=== PATIENT | male | born 1935 | race Caucasian/White ===

== ENCOUNTER 2019-05-09 09:46 | Emergency (ER) | payer MEDICARE, OTHER ==
[~2019-05-09] VITALS: Ht 177.8 cm; Wt 90.7 kg
[~2019-05-09 09:46] MED LIST: ASPI81EC PO; CHOLESTEROL MED?; CLOP75 PO; HYDCHL12.5 PO; LISI5 PO; RANI150 PO; WARF5 PO; Zestril PO
[2019-05-09] MEDS ORDERED: ASPI325 PO (10:51)
[2019-05-09 10:58] LABS: BASOPHILS ABSOLUTE AUTO 0.05 K/mm3 (0.00-0.23); BASOPHILS PERCENT AUTO 1 % (0-2); EOSINOPHILS ABSOLUTE AUTO 0.08 K/mm3 (0.00-0.68); EOSINOPHILS PERCENT AUTO 1 % (0-6); Hematocrit 36.5 % (37.0-53.0); Hemoglobin 11.2 g/dL (13.5-17.5); IMMATURE GRAN ABSOLUTE AUTO 0.03 K/mm3 (0.00-0.10); IMMATURE GRAN PERCENT AUTO 0 % (0-1); LYMPHOCYTES ABSOLUTE AUTO 1.44 K/mm3 (0.84-5.20); LYMPHOCYTES PERCENT AUTO 20 % (21-46); MONOCYTES ABSOLUTE AUTO 0.65 K/mm3 (0.16-1.47); MONOCYTES PERCENT AUTO 9 % (4-13); Mean Corpuscular HGB 21.1 pg (26.0-34.0); Mean Corpuscular HGB Conc 30.7 g/dL (31.5-36.5); Mean Corpuscular Volume 69 fL (80-100); Mean Platelet Volume 11.1 fL (9.1-12.4); NEUTROPHILS PERCENT AUTO 69 % (41-73); Platelet Count 376 K/mm3 (150-400); RDW Coefficient Variation 19.9 % (11.7-14.2); RDW Standard Deviation 46.3 fL (35.1-46.3); Red Blood Cell Count 5.31 M/mm3 (4.30-5.90); White Blood Cell Count 7.25 K/mm3 (4.00-11.30)
[2019-05-09 11:19] LABS: Alanine Aminotransfer (ALT/SGP 16 U/L (12-78); Albumin, Blood 3.8 g/dL (3.4-5.0); Albumin/Globulin Ratio 1.3 (0.8-1.8); Alk Phos 72 U/L (50-136); Anion Gap 9 mmol/L (6-16); Aspartate Aminotrans (AST/SGOT 11 U/L (12-37); Bilirubin, Total 0.8 mg/dL (0.1-1.0); Blood Urea Nitrogen 17 mg/dL (8-24); CO2, Blood 22 mmol/L (21-32); Calcium, Blood 8.7 mg/dL (8.5-10.1); Chloride, Blood 112 mmol/L (98-108); Glomerular Filtration Rate >60 (60-); Glucose, Blood 123 mg/dL (70-99); Potassium, Blood 3.9 mmol/L (3.5-5.5); Sodium, Blood 143 mmol/L (136-145); Total Protein, Blood 6.8 g/dL (6.4-8.2)
[2019-05-09 11:44] LABS: Source, Urine Clean Catch
[2019-05-09 12:29] LABS: Bilirubin, Urine Neg (Neg); Blood, Urine Neg (Neg); Glucose Qualitative, Urine Neg (Neg); Ketones, Urine 1+ (Neg); Leukocyte Esterase, Urine 1+ (Neg); Nitrite, Urine Neg (Neg); Protein, Urine Neg (Neg); Urobilinogen, Urine NORM (Normal)
[2019-05-09 12:41] LABS: Appearance, Urine Clear (Clear); Color, Urine Yellow (P-Yellow)
[2019-05-09 12:42] LABS: Red Blood Cells, Urine 0-2 /hpf (0-2)
[2019-05-09 12:43] LABS: Bacteria Rare /hpf; Mucus Mod ({null, 0-Heavy}); Squamous Epithelial Cells Rare /hpf (Few)
== END 2019-05-09 13:24 | disposition home or self-care (01) ==
LOC: ER 09:46
PROVIDERS: Emergency Medicine
DX: R53.1 Weakness (principal); Z79.82 Long term (current) use of aspirin; I10 Essential (primary) hypertension; Z86.73 Personal history of transient ischemic attack (TIA), and cerebral infarction without residual deficits
CPT/HCPCS: 36415; 80053; 81001; 83880; 84484; 85025; 87086; 93005; 93010; 99285-25

== ENCOUNTER → 2020-05-10 | Outpatient (CLI) | payer MEDICARE, OTHER ==
[~2020-05-10] MED LIST changes: +ASPI325 PO; +METOPROLOL SUCC25 MG PO; +OMEP20ER PO
[2020-05-10 11:22] LABS: BASOPHILS ABSOLUTE AUTO 0.04 K/mm3 (0.00-0.23); BASOPHILS PERCENT AUTO 1 % (0-2); EOSINOPHILS ABSOLUTE AUTO 0.07 K/mm3 (0.00-0.68); EOSINOPHILS PERCENT AUTO 1 % (0-6); Hematocrit 40.2 % (37.0-53.0); IMMATURE GRAN ABSOLUTE AUTO 0.02 K/mm3 (0.00-0.10); IMMATURE GRAN PERCENT AUTO 0 % (0-1); LYMPHOCYTES ABSOLUTE AUTO 1.16 K/mm3 (0.84-5.20); LYMPHOCYTES PERCENT AUTO 17 % (21-46); MONOCYTES ABSOLUTE AUTO 0.49 K/mm3 (0.16-1.47); MONOCYTES PERCENT AUTO 7 % (4-13); Mean Corpuscular HGB 23.9 pg (26.0-34.0); Mean Corpuscular HGB Conc 32.3 g/dL (31.5-36.5); Mean Corpuscular Volume 74 fL (80-100); Mean Platelet Volume 11.5 fL (9.1-12.4); NEUTROPHILS ABSOLUTE AUTO 5.18 K/mm3 (1.96-9.15); NEUTROPHILS PERCENT AUTO 74 % (41-73); Platelet Count 334 K/mm3 (150-400); RDW Coefficient Variation 19.6 % (11.7-14.2); RDW Standard Deviation 49.1 fL (35.1-46.3); Red Blood Cell Count 5.43 M/mm3 (4.30-5.90); White Blood Cell Count 6.96 K/mm3 (4.00-11.30)
[2020-05-10 11:34] LABS: Alanine Aminotransfer (ALT/SGP 18 U/L (12-78); Albumin, Blood 3.8 g/dL (3.4-5.0); Albumin/Globulin Ratio 1.2 (0.8-1.8); Alk Phos 74 U/L (40-126); Amylase, Blood 29 U/L (25-115); Anion Gap 9 mmol/L (6-16); Aspartate Aminotrans (AST/SGOT 15 U/L (12-37); Bilirubin, Total 0.7 mg/dL (0.1-1.0); Blood Urea Nitrogen 18 mg/dL (8-24); Bun/Creatinine Ratio 16.7 (12.0-20.0); CO2, Blood 27 mmol/L (21-32); Calcium, Blood 8.8 mg/dL (8.5-10.1); Chloride, Blood 104 mmol/L (98-108); Creatinine, Blood 1.08 mg/dL (0.60-1.20); Globulin, Blood 3.3 g/dL (2.2-4.0); Glomerular Filtration Rate >60 (60-); Glucose, Blood 116 mg/dL (70-99); Potassium, Blood 4.1 mmol/L (3.5-5.5); Sodium, Blood 140 mmol/L (136-145); Total Protein, Blood 7.1 g/dL (6.4-8.2)
== END | disposition home or self-care (01) ==
LOC: LAB SHORT 11:16 → LAB EV 11:16
PROVIDERS: General Practice
DX: K62.5 Hemorrhage of anus and rectum (principal); R53.81 Other malaise
CPT/HCPCS: 80053; 82150; 84439; 84443; 85025

== ENCOUNTER → 2020-05-13 | Outpatient (CLI) | payer MEDICARE, OTHER ==
[2020-05-13 18:49] LABS: Bacteria Not Seen /hpf; Red Blood Cells, Urine Not Seen /hpf (0-2); Squamous Epithelial Cells Rare /hpf (Few); White Blood Cells, Urine Rare /hpf (0-5)
== END | disposition home or self-care (01) ==
LOC: LAB SHORT 17:17 → LAB EV 17:17
PROVIDERS: Physician Assistant
DX: R35.0 Frequency of micturition (principal)
CPT/HCPCS: 81015; 87086

== ENCOUNTER 2020-05-23 13:00 | Emergency (ER) | payer MEDICARE, OTHER ==
[~2020-05-23] VITALS: Ht 177.8 cm; Wt 86.6 kg
[~2020-05-23 13:00] MED LIST changes: -METOPROLOL SUCC25 MG PO; -OMEP20ER PO
[2020-05-23 13:58] LABS: BASOPHILS ABSOLUTE AUTO 0.05 K/mm3 (0.00-0.23); BASOPHILS PERCENT AUTO 1 % (0-2); EOSINOPHILS ABSOLUTE AUTO 0.06 K/mm3 (0.00-0.68); EOSINOPHILS PERCENT AUTO 1 % (0-6); Hematocrit 42.1 % (37.0-53.0); Hemoglobin 13.5 g/dL (13.5-17.5); IMMATURE GRAN ABSOLUTE AUTO 0.03 K/mm3 (0.00-0.10); IMMATURE GRAN PERCENT AUTO 0 % (0-1); LYMPHOCYTES ABSOLUTE AUTO 1.36 K/mm3 (0.84-5.20); LYMPHOCYTES PERCENT AUTO 14 % (21-46); MONOCYTES ABSOLUTE AUTO 0.97 K/mm3 (0.16-1.47); MONOCYTES PERCENT AUTO 10 % (4-13); Mean Corpuscular HGB 24.6 pg (26.0-34.0); Mean Corpuscular HGB Conc 32.1 g/dL (31.5-36.5); Mean Corpuscular Volume 77 fL (80-100); Mean Platelet Volume 10.9 fL (9.1-12.4); NEUTROPHILS ABSOLUTE AUTO 7.31 K/mm3 (1.96-9.15); NEUTROPHILS PERCENT AUTO 75 % (41-73); Platelet Count 329 K/mm3 (150-400); RDW Coefficient Variation 20.5 % (11.7-14.2); RDW Standard Deviation 54.6 fL (35.1-46.3); Red Blood Cell Count 5.48 M/mm3 (4.30-5.90); White Blood Cell Count 9.78 K/mm3 (4.00-11.30)
[2020-05-23 14:31] LABS: Alanine Aminotransfer (ALT/SGP 17 U/L (12-78); Albumin, Blood 3.6 g/dL (3.4-5.0); Albumin/Globulin Ratio 1.2 (0.8-1.8); Alk Phos 73 U/L (50-136); Anion Gap 5 mmol/L (6-16); Aspartate Aminotrans (AST/SGOT 18 U/L (12-37); Bilirubin, Total 0.6 mg/dL (0.1-1.0); Blood Urea Nitrogen 23 mg/dL (8-24); Bun/Creatinine Ratio 23.7 (12.0-20.0); CO2, Blood 23 mmol/L (21-32); Calcium, Blood 8.6 mg/dL (8.5-10.1); Chloride, Blood 113 mmol/L (98-108); Creatinine, Blood 0.97 mg/dL (0.60-1.20); Globulin, Blood 3.1 g/dL (2.2-4.0); Glomerular Filtration Rate >60 (60-); Glucose, Blood 105 mg/dL (70-99); Potassium, Blood 4.4 mmol/L (3.5-5.5); Sodium, Blood 141 mmol/L (136-145); Total Protein, Blood 6.7 g/dL (6.4-8.2); Troponin I <0.015 ng/mL (0.000-0.040)
[2020-05-23] MEDS ORDERED: OMEP20ER PO (16:20)
[2020-05-23] MEDS ORDERED: METOPROLOL SUCC25 MG PO (16:20)
[2020-05-23 17:02] LABS: Percent Saturation 128.2 % (20.0-50.0)
[2020-05-23 18:57] LABS: Source, Urine Catheter
[2020-05-23 19:05] LABS: Appearance, Urine Clear (Clear); Bilirubin, Urine Neg (Neg); Blood, Urine Neg (Neg); Color, Urine Yellow (P-Yellow); Glucose Qualitative, Urine Neg (Neg); Ketones, Urine 3+ (Neg); Leukocyte Esterase, Urine Neg (Neg); Nitrite, Urine Neg (Neg); Protein, Urine Neg (Neg); Urobilinogen, Urine NORM (Normal)
== END 2020-05-23 20:18 | disposition home or self-care (01) ==
LOC: ER 13:00
PROVIDERS: Physician Assistant
DX: R55 Syncope and collapse (principal); R53.1 Weakness; I10 Essential (primary) hypertension; Z79.899 Other long term (current) drug therapy; Z79.82 Long term (current) use of aspirin; Z86.718 Personal history of other venous thrombosis and embolism; Z86.73 Personal history of transient ischemic attack (TIA), and cerebral infarction without residual deficits
CPT/HCPCS: 36415; 74176; 80053; 81003; 82728; 83540; 83550; 84484; 85025; 93005; 93010; 99284-25

== ENCOUNTER → 2020-05-25 | Outpatient (CLI) | payer MEDICARE, OTHER ==
[~2020-05-25] MED LIST changes: +METOPROLOL SUCC25 MG PO; +OMEP20ER PO
[2020-05-26 14:08] LABS: ADENOVIRUS F 40/41 Not Detected (Not Detected); ASTROVIRUS Not Detected (Not Detected); C DIFFICILE TOXIN A/B Not Detected (Not Detected); CAMPYLOBACTER Not Detected (Not Detected); CRYPTOSPORIDIUM Not Detected (Not Detected); CYCLOSPORA CAYETANENSIS Not Detected (Not Detected); ENTAMOEBA HISTOLYTICA Not Detected (Not Detected); ENTEROAGGREGATIVE E COLI Not Detected (Not Detected); ENTEROPATHOGENIC E COLI Not Detected (Not Detected); ENTEROTOXIGENIC E COLI Not Detected (Not Detected); GIARDIA LAMBLIA Not Detected (Not Detected); NOROVIRUS GI/GII Not Detected (Not Detected); PLESIOMONAS SHIGELLOIDES Not Detected (Not Detected); ROTAVIRUS A Not Detected (Not Detected); SALMONELLA Not Detected (Not Detected); SAPOVIRUS Not Detected (Not Detected); SHIGA-TOXIN-PRODUCING E COLI Not Detected (Not Detected); SHIGELLA/ENTEROINVASIVE E COLI Not Detected (Not Detected); VIBRIO Not Detected (Not Detected); VIBRIO CHOLERAE Not Detected (Not Detected); YERSINIA ENTEROCOLITICA Not Detected (Not Detected)
== END | disposition home or self-care (01) ==
LOC: OLS 10:22 → LAB SHORT 10:22 → LAB FUT 05-23 07:05 → EDSTATUS 05-23 07:05
PROVIDERS: Physician Assistant
DX: R19.7 Diarrhea, unspecified (principal)
CPT/HCPCS: 0097U

== ENCOUNTER 2020-06-02 14:36 | Emergency (ER) | payer MEDICARE, OTHER ==
[~2020-06-02] VITALS: Ht 177.8 cm; Wt 91.2 kg
[2020-06-02 15:26] LABS: BASOPHILS ABSOLUTE AUTO 0.07 K/mm3 (0.00-0.23); BASOPHILS PERCENT AUTO 1 % (0-2); EOSINOPHILS ABSOLUTE AUTO 0.17 K/mm3 (0.00-0.68); EOSINOPHILS PERCENT AUTO 2 % (0-6); Hematocrit 43.6 % (37.0-53.0); Hemoglobin 14.1 g/dL (13.5-17.5); IMMATURE GRAN ABSOLUTE AUTO 0.03 K/mm3 (0.00-0.10); IMMATURE GRAN PERCENT AUTO 0 % (0-1); LYMPHOCYTES ABSOLUTE AUTO 1.76 K/mm3 (0.84-5.20); LYMPHOCYTES PERCENT AUTO 17 % (21-46); MONOCYTES ABSOLUTE AUTO 0.88 K/mm3 (0.16-1.47); MONOCYTES PERCENT AUTO 9 % (4-13); Mean Corpuscular HGB 24.9 pg (26.0-34.0); Mean Corpuscular HGB Conc 32.3 g/dL (31.5-36.5); Mean Corpuscular Volume 77 fL (80-100); NEUTROPHILS ABSOLUTE AUTO 7.21 K/mm3 (1.96-9.15); NEUTROPHILS PERCENT AUTO 71 % (41-73); Platelet Count 296 K/mm3 (150-400); RDW Coefficient Variation 20.1 % (11.7-14.2); RDW Standard Deviation 54.4 fL (35.1-46.3); Red Blood Cell Count 5.66 M/mm3 (4.30-5.90); White Blood Cell Count 10.12 K/mm3 (4.00-11.30)
[2020-06-02 15:46] LABS: Alanine Aminotransfer (ALT/SGP 18 U/L (12-78); Albumin, Blood 3.7 g/dL (3.4-5.0); Albumin/Globulin Ratio 1.2 (0.8-1.8); Alk Phos 76 U/L (50-136); Anion Gap 7 mmol/L (6-16); Aspartate Aminotrans (AST/SGOT 14 U/L (12-37); Bilirubin, Total 0.7 mg/dL (0.1-1.0); Blood Urea Nitrogen 17 mg/dL (8-24); Bun/Creatinine Ratio 18.6 (12.0-20.0); CO2, Blood 24 mmol/L (21-32); Calcium, Blood 9.1 mg/dL (8.5-10.1); Chloride, Blood 109 mmol/L (98-108); Creatinine, Blood 0.91 mg/dL (0.60-1.20); Globulin, Blood 3.1 g/dL (2.2-4.0); Glomerular Filtration Rate >60 (60-); Glucose, Blood 97 mg/dL (70-99); Potassium, Blood 3.9 mmol/L (3.5-5.5); Sodium, Blood 140 mmol/L (136-145); Total Protein, Blood 6.8 g/dL (6.4-8.2)
[2020-06-02 16:28] LABS: Source, Urine Clean Catch
[2020-06-02 16:32] LABS: Bilirubin, Urine Neg (Neg); Blood, Urine Neg (Neg); Glucose Qualitative, Urine Neg (Neg); Ketones, Urine 1+ (Neg); Leukocyte Esterase, Urine Neg (Neg); Nitrite, Urine Neg (Neg); Protein, Urine Neg (Neg); Specific Gravity, Urine 1.015 (1.003-1.022); Urobilinogen, Urine NORM (Normal)
[2020-06-02 16:39] LABS: Appearance, Urine Clear (Clear); Color, Urine Yellow (P-Yellow)
[2020-06-02 19:34] LABS: Troponin I <0.015 ng/mL (0.000-0.040)
== END 2020-06-02 20:37 | disposition home or self-care (01) ==
LOC: ER 14:36
PROVIDERS: Emergency Medicine
DX: R53.1 Weakness (principal); R42 Dizziness and giddiness; I10 Essential (primary) hypertension; Z86.73 Personal history of transient ischemic attack (TIA), and cerebral infarction without residual deficits; Z86.718 Personal history of other venous thrombosis and embolism
CPT/HCPCS: 36415; 71045; 80053; 81003; 84443; 84484; 85025; 93005; 93010; 99285-25

== ENCOUNTER 2020-07-21 12:10 | Emergency (ER) | payer MEDICARE, OTHER ==
[~2020-07-21] VITALS: Ht 177.8 cm; Wt 72.6 kg
[2020-07-21 12:39] LABS: BASOPHILS ABSOLUTE AUTO 0.05 K/mm3 (0.00-0.23); BASOPHILS PERCENT AUTO 0 % (0-2); EOSINOPHILS ABSOLUTE AUTO 0.02 K/mm3 (0.00-0.68); EOSINOPHILS PERCENT AUTO 0 % (0-6); Hematocrit 44.1 % (37.0-53.0); Hemoglobin 15.4 g/dL (13.5-17.5); IMMATURE GRAN ABSOLUTE AUTO 0.04 K/mm3 (0.00-0.10); IMMATURE GRAN PERCENT AUTO 0 % (0-1); LYMPHOCYTES ABSOLUTE AUTO 1.02 K/mm3 (0.84-5.20); LYMPHOCYTES PERCENT AUTO 8 % (21-46); MONOCYTES ABSOLUTE AUTO 1.31 K/mm3 (0.16-1.47); MONOCYTES PERCENT AUTO 11 % (4-13); Mean Corpuscular HGB 27.9 pg (26.0-34.0); Mean Corpuscular HGB Conc 34.9 g/dL (31.5-36.5); Mean Corpuscular Volume 80 fL (80-100); Mean Platelet Volume 10.3 fL (9.1-12.4); NEUTROPHILS ABSOLUTE AUTO 9.94 K/mm3 (1.96-9.15); NEUTROPHILS PERCENT AUTO 80 % (41-73); Platelet Count 334 K/mm3 (150-400); RDW Standard Deviation 48.5 fL (35.1-46.3); Red Blood Cell Count 5.51 M/mm3 (4.30-5.90); White Blood Cell Count 12.38 K/mm3 (4.00-11.30)
[2020-07-21 13:04] LABS: Albumin, Blood 3.7 g/dL (3.4-5.0); Albumin/Globulin Ratio 1.3 (0.8-1.8); Bun/Creatinine Ratio 15.3 (12.0-20.0); Calcium, Blood 9.5 mg/dL (8.5-10.1); Creatinine, Blood 1.5 mg/dL (0.60-1.20); Globulin, Blood 2.9 g/dL (2.2-4.0); Potassium, Blood 4.1 mmol/L (3.5-5.5); Total Protein, Blood 6.6 g/dL (6.4-8.2)
[2020-07-21 13:31] LABS: Source, Urine Clean Catch
[2020-07-21 13:35] LABS: Appearance, Urine Clear (Clear); Blood, Urine 1+ (Neg); Color, Urine Amber (P-Yellow); Glucose Qualitative, Urine Neg (Neg); Ketones, Urine 3+ (Neg); Leukocyte Esterase, Urine 1+ (Neg); Nitrite, Urine Neg (Neg); Protein, Urine 2+ (Neg); Specific Gravity, Urine 1.025 (1.003-1.022); Urobilinogen, Urine 1+ (Normal)
[2020-07-21 13:53] LABS: Bilirubin, Urine 1+ (Neg)
[2020-07-21 13:54] LABS: Bacteria Few /hpf; Red Blood Cells, Urine 0-2 /hpf (0-2); Squamous Epithelial Cells Rare /hpf (Few)
[2020-07-21 18:50] LABS: Calcium, Ionized (POC) 1.11 mmol/L (1.10-1.46); Chloride (POC) 102 mmol/L (98-108); Creatinine (POC) 1.2 mg/dL (0.8-1.3); Glucose (ISTAT POC) 77 mg/dL (70-99); Hemoglobin (POC) 13.6 g/dL (13.5-17.5); Potassium (POC) 3.9 mmol/L (3.5-5.5); Sodium (POC) 136 mmol/L (135-148); Total CO2 (POC) 21 mmol/L (21-32)
== END 2020-07-21 20:26 | disposition home or self-care (01) ==
LOC: ER 12:10
PROVIDERS: Emergency Medicine; Physician Assistant
DX: E86.0 Dehydration (principal); R62.7 Adult failure to thrive; R41.0 Disorientation, unspecified; I10 Essential (primary) hypertension; Z79.899 Other long term (current) drug therapy; Z86.73 Personal history of transient ischemic attack (TIA), and cerebral infarction without residual deficits; Z86.718 Personal history of other venous thrombosis and embolism
CPT/HCPCS: 51701; 70450; 80047; 80053; 81001; 85014; 85025; 87086; 93005; 93010; 96360-59; 99284-25; J7030

== ENCOUNTER 2020-07-29 14:56 | Inpatient (IN) | payer MEDICARE, OTHER ==
[~2020-07-29] VITALS: Ht 177.8 cm; Wt 83.9 kg
[2020-07-29] MEDS ORDERED: PRINIVIL10 MG PO (15:04)
[2020-07-29] MEDS ORDERED: ESCI10 PO (15:04)
[2020-07-29] MEDS ORDERED: SOLIFENACIN SUCC5 MG PO (15:04)
[2020-07-29] MEDS ORDERED: Zyprexa Zydis5 MG PO (15:04)
[2020-07-29] MEDS ORDERED: PLAVIX75 MG PO (15:04)
[2020-07-29] MEDS ORDERED: LOW DOSE ASPIRI81 M1 PO (15:05)
[2020-07-29 15:11] LABS: PCO2 Arterial 26.2 mmHg (35-45); PO2 Arterial 84.4 mmHg (80-100); pH Blood Arterial 7.41 (7.35-7.45)
[2020-07-29 15:23] LABS: Source, Urine Catheter
[2020-07-29 15:27] LABS: BASOPHILS ABSOLUTE AUTO 0.06 K/mm3 (0.00-0.23); BASOPHILS PERCENT AUTO 0 % (0-2); EOSINOPHILS ABSOLUTE AUTO 0.01 K/mm3 (0.00-0.68); EOSINOPHILS PERCENT AUTO 0 % (0-6); Hematocrit 44.6 % (37.0-53.0); IMMATURE GRAN ABSOLUTE AUTO 0.17 K/mm3 (0.00-0.10); IMMATURE GRAN PERCENT AUTO 1 % (0-1); LYMPHOCYTES PERCENT AUTO 10 % (21-46); MONOCYTES ABSOLUTE AUTO 1.55 K/mm3 (0.16-1.47); MONOCYTES PERCENT AUTO 9 % (4-13); Mean Corpuscular HGB 27.7 pg (26.0-34.0); Mean Corpuscular HGB Conc 33.6 g/dL (31.5-36.5); Mean Corpuscular Volume 82 fL (80-100); Mean Platelet Volume 12.4 fL (9.1-12.4); NEUTROPHILS ABSOLUTE AUTO 14.13 K/mm3 (1.96-9.15); NEUTROPHILS PERCENT AUTO 80 % (41-73); Platelet Count 152 K/mm3 (150-400); RDW Coefficient Variation 17.2 % (11.7-14.2); Red Blood Cell Count 5.42 M/mm3 (4.30-5.90); White Blood Cell Count 17.62 K/mm3 (4.00-11.30)
[2020-07-29 15:33] LABS: Appearance, Urine Hazy (Clear); Blood, Urine 1+ (Neg); Color, Urine Amber (P-Yellow); Glucose Qualitative, Urine Neg (Neg); Ketones, Urine 1+ (Neg); Leukocyte Esterase, Urine 1+ (Neg); Nitrite, Urine Neg (Neg); Protein, Urine 2+ (Neg); Specific Gravity, Urine 1.025 (1.003-1.022); Urobilinogen, Urine 2+ (Normal)
[2020-07-29 15:45] LABS: Bilirubin, Urine 1+ (Neg)
[2020-07-29 15:47] LABS: Amorphous Heavy (0-Heavy)
[2020-07-29 15:48] LABS: Bacteria Mod /hpf; Red Blood Cells, Urine 0-2 /hpf (0-2); Squamous Epithelial Cells Few /hpf (Few); White Blood Cells, Urine 0-2 /hpf (0-5)
[2020-07-29 15:54] LABS: Albumin, Blood 3.2 g/dL (3.4-5.0); Bun/Creatinine Ratio 13.6 (12.0-20.0); Creatinine, Blood 3.38 mg/dL (0.60-1.20); Globulin, Blood 3.2 g/dL (2.2-4.0); Potassium, Blood 4.7 mmol/L (3.5-5.5); Total Protein, Blood 6.4 g/dL (6.4-8.2)
[2020-07-29] MEDS ORDERED: ASPIR 8181 M1 PO (15:56)
[2020-07-29 16:03] LABS: Troponin I 3.31 ng/mL (0.000-0.040)
[2020-07-29 18:18] LABS: International Normalized Ratio 1.27; Prothrombin Time Results 13.4 Sec (9.7-11.5)
[2020-07-29 18:29] LABS: Influenza A, PCR Negative (NEGATIVE); Influenza B, PCR Negative (NEGATIVE); Resp Syncytial Virus, PCR Negative (NEGATIVE); SARS-Cov-2 (COVID-19) PCR, MMC Negative (NEGATIVE)
--- NOTE | 2020-07-29 19:15 | NUR ---
ADMISSION: PT ARRIVES FROM ED W/ Dx SEPSIS, NSTEMI, LEVY. PER FAMILY, PT HAS HAD A HERRERA DECLINE SINCE APPROX W/ INC SOMNOLENCE, ANOREXIA W/ SIGIFICANT WEIGHT LOSS OF ~20lbs. FAMILY STS PT REFUSES TO EAT & WILL ONLY SLEEP IN HIS WC D/T HIS HYPER CONCERN W/ INCONTINENCE. OVER THE LAST 2 DAYS PT HAS NEW DYSPHAGIA, CONFUSION, GARBLED SPEECH, & HALLUCINATIONS "SEEING & HEARING PEOPLE OUTSIDE" PER FAMILY. -UPON ARRIVAL PT IS SOMNOLENT, AWAKENS TO VERBAL STIMULI, ORIENTED x3, SLOW TO RESPOND W/ SOME GARBLED SPEECH, ABLE TO FOLLOW SOME SIMPLE COMMANDS. PT APPEARS PALE, SKIN IS COOL W/ CYANOTIC HANDS & FEET, CAP REFILL >3SEC. MONITOR INDICATES A SINUS RHYTHM. HR LOW 100s, SBP 100-90. HEPARIN GTT @ 13u/kg/hr SEE ASSESSMENT DOCUMENTATION.
--- NOTE | 2020-07-29 21:00 | NUR ---
CRITICAL LAB RESULTS: UPWARD TREND TROP OF 3.590. LACTIC DEC TO 4.0. SPOKE W/ DR PEREZ REGARDING RESULTS & DISCUSSED CHANGE IN FLUID RECUSITATION & AM LAB WORK. NO NEW ORDERS GIVEN. PT REMAINS STABLE W/ NO ACUTE CHANGES.
[2020-07-30 01:31] LABS: BASOPHILS ABSOLUTE AUTO 0.06 K/mm3 (0.00-0.23); BASOPHILS PERCENT AUTO 0 % (0-2); EOSINOPHILS ABSOLUTE AUTO 0.01 K/mm3 (0.00-0.68); EOSINOPHILS PERCENT AUTO 0 % (0-6); Hematocrit 39.8 % (37.0-53.0); Hemoglobin 13.5 g/dL (13.5-17.5); IMMATURE GRAN ABSOLUTE AUTO 0.09 K/mm3 (0.00-0.10); IMMATURE GRAN PERCENT AUTO 1 % (0-1); LYMPHOCYTES ABSOLUTE AUTO 1.55 K/mm3 (0.84-5.20); LYMPHOCYTES PERCENT AUTO 9 % (21-46); MONOCYTES PERCENT AUTO 10 % (4-13); Mean Corpuscular HGB 28.3 pg (26.0-34.0); Mean Corpuscular HGB Conc 33.9 g/dL (31.5-36.5); Mean Corpuscular Volume 83 fL (80-100); Mean Platelet Volume 12.2 fL (9.1-12.4); NEUTROPHILS ABSOLUTE AUTO 13.29 K/mm3 (1.96-9.15); NEUTROPHILS PERCENT AUTO 80 % (41-73); Platelet Count 121 K/mm3 (150-400); RDW Standard Deviation 50.8 fL (35.1-46.3); Red Blood Cell Count 4.77 M/mm3 (4.30-5.90)
[2020-07-30 02:00] LABS: Albumin, Blood 2.7 g/dL (3.4-5.0); Bilirubin, Total 0.9 mg/dL (0.1-1.0); Bun/Creatinine Ratio 16.3 (12.0-20.0); Calcium, Blood 8.4 mg/dL (8.5-10.1); Creatinine, Blood 2.94 mg/dL (0.60-1.20); Globulin, Blood 2.8 g/dL (2.2-4.0); Potassium, Blood 4.4 mmol/L (3.5-5.5); Total Protein, Blood 5.5 g/dL (6.4-8.2)
[2020-07-30 02:03] LABS: Troponin I 3.38 ng/mL (0.000-0.040)
--- NOTE | 2020-07-30 05:50 | NUR ---
SHIFT SUMMARY: PT AWAKE, RESPONDS TO VERBAL STIMULI, ABLE TO FOLLOW SOME COMMANDS. PT DOES NOT TRACK STAFF AROUND THE ROOM, DOES NOT MAKE EYE CONTACT WHEN SPEAKING OR WHEN ASKED. VERY SLOW TO RESPOND, SPEAKING IN 1-2 WORD SENTENCES W/ GARBLED SPEECH. MENTATION RELATIVELY UNCHANGED COMPARED TO PREVIOUS DOCUMENTATION. HEPARIN GTT @ 13u/kg/hr. PT HAD MUCH DIFFICULTY SLEEPING LAST NOC, STS HE DID NOT SLEEP @ ALL. POOR OUTPUT OF 150ml DARK JUAN URINE THIS SHIFT. BP CONTINUES TO BE SOFT W/ SBP 100s-85, MAP OF >65. NO ACUTE CHANGES THIS SHIFT.
--- NOTE | 2020-07-30 12:13 | NUR ---
PT RESTING IN BED. ABLE TO STATE MONTH AND YEAR. WHEN ASKED WHERE HE IS HE CANNOT COME UP WITH THE WORDS, BUT WHEN ASKED IF HE IS IN THE HOSPITAL HE SAYS "YES". IVF CHANGED TO NS AT 150ML/HR. ON HEPARIN GTT STILL. DR. VO IS OK WITH PT CHANGING TO PCU STATUS. NO SIGN OF DISTRESS. SONS UPDATED THIS AM VIA PHONE.
[2020-07-30 12:29] LABS: Albumin, Blood 2.6 g/dL (3.4-5.0); Anion Gap 9 mmol/L (6-16); Blood Urea Nitrogen 53 mg/dL (8-24); Bun/Creatinine Ratio 23.6 (12.0-20.0); CO2, Blood 23 mmol/L (21-32); Calcium, Blood 8.1 mg/dL (8.5-10.1); Chloride, Blood 111 mmol/L (98-108); Creatinine, Blood 2.25 mg/dL (0.60-1.20); Glomerular Filtration Rate 30 (60-); Glucose, Blood 120 mg/dL (70-99); Phosphorus, Blood 4.2 mg/dL (2.5-4.9); Potassium, Blood 4.2 mmol/L (3.5-5.5); Sodium, Blood 143 mmol/L (136-145)
--- NOTE | 2020-07-30 14:25 | NUR ---
PT TRANSFERED TO PCU VIA BED. NO SIGN OF DISTRESS. REPORT GIVEN TO SOPHIA WHO WILL ASSUME CARE.
--- NOTE | 2020-07-30 15:10 | NUR ---
RECEIVIED REPORT FROM KRISHNA GRIFFIN IN ICU. PT TRANSFERED TO ROOM. PT ALERT, ORIENTED TO SELF, UNWILLING TO ANSWER QUESTIONS, MUMBLES BUT CLEARLY STATES "GET OUT OF MY ROOM". NO S/SX OF DISTRESS NOTED. VSS. REPORT GIVEN TO RN ASSUMING CARE OF PT.
--- NOTE | 2020-07-30 15:30 | NUR ---
ASSUMED CARE: PT RESTING QUIETLY IN BED. HEPARIN GTT AND IV FLUIDS IN PLACE. PT IS LETHARGIC AT THIS TIME. AFIB AT 112 ON TELE AT THIS TIME. NO ACUTE NEEDS OR CONCERNS.
--- NOTE | 2020-07-30 17:30 | NUR ---
SHIFT SUMMARY: PT TRANSFERRED FROM ICU THIS SHIFT. LETHARGIC, MOANS OCCASIONALLY, SEEMS NONVERBAL AT THIS TIME. HEPARIN GTT RUNNING, TERAN CATH IN PLACE WITH SEDIMENT AND CLOUDY, TEA COLORED URINE NOTED. FLUIDS RUNNING WELL. BED ALARM ON, AFIB 113 ON TELE AT THIS TIME. NO ACUTE NEEDS OR CONCERNS.
[2020-07-31 04:07] LABS: BASOPHILS ABSOLUTE AUTO 0.05 K/mm3 (0.00-0.23); BASOPHILS PERCENT AUTO 0 % (0-2); EOSINOPHILS ABSOLUTE AUTO 0.03 K/mm3 (0.00-0.68); EOSINOPHILS PERCENT AUTO 0 % (0-6); Hematocrit 40.8 % (37.0-53.0); Hemoglobin 13.7 g/dL (13.5-17.5); IMMATURE GRAN PERCENT AUTO 1 % (0-1); LYMPHOCYTES ABSOLUTE AUTO 1.33 K/mm3 (0.84-5.20); LYMPHOCYTES PERCENT AUTO 8 % (21-46); MONOCYTES ABSOLUTE AUTO 1.68 K/mm3 (0.16-1.47); MONOCYTES PERCENT AUTO 10 % (4-13); Mean Corpuscular HGB Conc 33.6 g/dL (31.5-36.5); Mean Corpuscular Volume 83 fL (80-100); Mean Platelet Volume 12.6 fL (9.1-12.4); NEUTROPHILS ABSOLUTE AUTO 14.26 K/mm3 (1.96-9.15); NEUTROPHILS PERCENT AUTO 82 % (41-73); Platelet Count 163 K/mm3 (150-400); RDW Coefficient Variation 17.2 % (11.7-14.2); RDW Standard Deviation 50.9 fL (35.1-46.3); White Blood Cell Count 17.45 K/mm3 (4.00-11.30)
[2020-07-31 04:24] LABS: Albumin, Blood 2.6 g/dL (3.4-5.0); Albumin/Globulin Ratio 0.9 (0.8-1.8); Bilirubin, Total 0.9 mg/dL (0.1-1.0); Bun/Creatinine Ratio 31.1 (12.0-20.0); Calcium, Blood 7.9 mg/dL (8.5-10.1); Creatinine, Blood 1.67 mg/dL (0.60-1.20); Magnesium, Blood 2.2 mg/dL (1.6-2.4); Phosphorus, Blood 2.8 mg/dL (2.5-4.9); Potassium, Blood 4.1 mmol/L (3.5-5.5); Total Protein, Blood 5.6 g/dL (6.4-8.2)
--- NOTE | 2020-07-31 06:14 | NUR ---
SHIFT SUMMARY: PATIENT IS ABLE TO STATE BIRTHDATE, NAME AND THAT HE IS IN THE HOSPITAL. SLOW TO RESPOND WITH SOME SLURRED SPEECH. NO ACUTE CHANGES THIS SHIFT. VITAL SIGNS STABLE. ON 2 L NC MAINTAINING SATS >92%. ON TELE IN SINUS TACH WITH HR 110-120'S. Q2 TURNS AND Q4 ORAL CARE. HEPARIN DRIP INFUSING AT 14 U/KG/HR. TERAN CATH DRAINING TO GRAVITY. SOME URINE DRAINING AROUND CATHETER INSERTION SITE, 5 ML OF SALINE ADDED FOR A TOTAL OF 12ML IN TERAN BULB, WITH 2ND RN. BLADDER SCAN DONE, 0ML NOTED ON SCAN. WILL CONTINUE TO MONITOR TERAN DRAINAGE. NS INFUSING AT 150 ML/HR. TROPONINS TRENDING DOWN.
--- NOTE | 2020-07-31 15:41 | NUR ---
PT WITH SUDDEN AGITATION, PT ATTEMPTING TO PULL IV POLE ON TO BED, THROWS CALL LIGHT STRIKING THIS RN IN BACK, THEN GRABS THIS RN AND HANDY MAN LUAN ATTEMPTING TO TWIST FINGER TIPS OF STAFF BACKWARDS. PT PLACED IN 2 POINT RESTRAINTS
--- NOTE | 2020-07-31 16:51 | NUR ---
HEPARIN D/C PER DR MRUPHY, HEPARIN D/C AND LINE FLUSHED. PT REMAINS IN 1 POINT SOFT RESTAINT WITH LUDWIG
--- NOTE | 2020-07-31 17:44 | NUR ---
SHIFT NOTE PT HAS BEEN SLEEPING AND CONUFSED FOR MOST OF THE DAY. PT AWOKE THIS EVENING DURING ATTEMPT TO OBTAIN EVENING VITALS AND BEGAN RIPPING AT IV TUBING, ATTEMPTED TO PULL IV POLE DOWN ON HIMSELF, HE THEN PULLED LINES WITH SUCH FOR THAT HE DISLODGED THE SPIKE FROM THE HEPARIN BAG. PT USED CALL LIGHT A WEAPON ATTEMPTING TO STRIKE THIS RN THEN ULTIMATELY THREW THE CALL LIGHT AT THIS RN. MULTIPLE STAFF TO ROOM PT WAS PLACED INTO 2PT SOFT RESTRAINTS. PT BECAME MORE AGGRESSIVE, AT THAT TIME HE GOT AHOLD OF THIS RN AND PULL THROUGH HOOKER LUAN'S HANDS AND WAS TWISTING FINGERS, MUPLITPLE STAFF HAD TO REMOVE PT'S ELECTRICAL RESEARCH ENGINEER FROM OUR HANDS. PT WAS NOT INJURED DURING THIS EVENT, STAFF WITH MILD PAIN TO HANDS AFTER THE EVENT. PT HAS OTHERWISE BEEN RESTING WELL IN BED. HEPARIN IS D/C. PT NOW IS SLEEPING WITH [address] AND MITTENS BILATSO THAT HE CAN NOT PULL AT LINES OF HARM STAFF.
--- NOTE | 2020-07-31 18:13 | NUR ---
Summary of pt visit at 1400 and two hour joint visit with pt's son, Rolando and Chaplain Dixon. Son, Rolando, called and reported to us that his younger brother, Christiano, had taken his own life yesterday. Filer Finish and I visited pt to assess his ability understand or process the news of this family tragedy. Pt knew he was in the hospital, his name and his 's name but was very unclear why he was in the hospital, how long he'd been here or timelines of events. We then met with Rolando for nearly two hours, mostly for therapeutic listening and support and some guidance, as requested by family on if/how Ujan should be informed. Rolando was given resources for survivor support and for advanced care planning for both of his parents. He and his family will be dealing with the immediate needs and details of his brother's for the next couple of days. He and his mom are asking for assist with d/c planning when the time comes for his dad and feeling placement outside of the home will be necessary. I spoke with cupola charger insulation who states CM and DR aware of family circumstances and need for placement, whether for rehab if possible or LTC when pt is medically stable and ready for d/c. Code status was adressed yesterday and Rolando confirms again that his dad would not want aggressive intervention if he were to fail further or not improve at this time. He was ambulatory and independent two weeks ago so family hopeful he can return to his PLOF. [facility] Care nurse and roofing machine operator to continue to follow for advanced care planning and support to pt and family.
--- NOTE | 2020-07-31 18:29 | NUR ---
Spiritual care note: Two hour family meeting with Mr. Doll son, Rolando. Pt's youngest son suddenly last evening. Meeting facilitated with palliative care RN, Kirti. Together, we provided activities counselor, comfort, and guidence going forward. These interventions were well recieved by Rolando. Clearly, this family is struggling on several fronts: The decline of it's patriarch, Juan, of a son, business uncertainty, and options going forward. Counseled against telling pt about the of his son today as pt is quite frail and confused. Advised I would remain available to assist with activities counselor and guidence.
[2020-08-01 03:54] LABS: BASOPHILS ABSOLUTE AUTO 0.04 K/mm3 (0.00-0.23); BASOPHILS PERCENT AUTO 0 % (0-2); EOSINOPHILS ABSOLUTE AUTO 0.07 K/mm3 (0.00-0.68); EOSINOPHILS PERCENT AUTO 1 % (0-6); Hemoglobin 13.3 g/dL (13.5-17.5); IMMATURE GRAN ABSOLUTE AUTO 0.13 K/mm3 (0.00-0.10); IMMATURE GRAN PERCENT AUTO 1 % (0-1); LYMPHOCYTES ABSOLUTE AUTO 0.96 K/mm3 (0.84-5.20); LYMPHOCYTES PERCENT AUTO 8 % (21-46); MONOCYTES ABSOLUTE AUTO 1.23 K/mm3 (0.16-1.47); MONOCYTES PERCENT AUTO 10 % (4-13); Mean Corpuscular HGB 28.2 pg (26.0-34.0); Mean Corpuscular HGB Conc 33.3 g/dL (31.5-36.5); Mean Corpuscular Volume 85 fL (80-100); Mean Platelet Volume 11.6 fL (9.1-12.4); NEUTROPHILS ABSOLUTE AUTO 9.74 K/mm3 (1.96-9.15); NEUTROPHILS PERCENT AUTO 80 % (41-73); NRBC ABSOLUTE 0.02 K/mm3 (0.00-0.02); NRBC Auto 0.2 /100 WBC (0.0-0.2); Platelet Count 159 K/mm3 (150-400); RDW Coefficient Variation 17.5 % (11.7-14.2); RDW Standard Deviation 52.2 fL (35.1-46.3); Red Blood Cell Count 4.72 M/mm3 (4.30-5.90); White Blood Cell Count 12.17 K/mm3 (4.00-11.30)
[2020-08-01 04:11] LABS: Anion Gap 8 mmol/L (6-16); Blood Urea Nitrogen 44 mg/dL (8-24); Bun/Creatinine Ratio 37.9 (12.0-20.0); CO2, Blood 23 mmol/L (21-32); Calcium, Blood 8.1 mg/dL (8.5-10.1); Chloride, Blood 120 mmol/L (98-108); Creatinine, Blood 1.16 mg/dL (0.60-1.20); Glomerular Filtration Rate >60 (60-); Glucose, Blood 99 mg/dL (70-99); Potassium, Blood 3.6 mmol/L (3.5-5.5); Sodium, Blood 151 mmol/L (136-145)
--- NOTE | 2020-08-01 06:22 | NUR ---
SHIFT SUMMARY PT SLEPT T/O SHIFT. PT ALERT TO SELF. PT IN SOFT WRIST RESTRAINTS D/T AGGITATION AND PULLING AT LINES. PT TURNED Q 2 HRS. HR STABLE. BP STABLE. OXYGEN SATURATION MAINTAINED ABOVE 92% ON 1 L OF OXYGEN VIA NC. PT REPORTS NO CP OR PRESSURE. WILL CONTINUE TO MONITOR UNTIL REPORT GIVEN TO MINE KELLER.
--- NOTE | 2020-08-01 18:22 | NUR ---
SHIFT NOTE PT REMAINS IN BILAT WRIST SOFT RESTRAINTS. PT GRABBED PCT THIS AFTERNOON CAUSING MODERATE PAIN TO PCT WHEN REMOVED FROM RESTRAINTS TO REPOSITION. PT CONTINUES TO PULL AT LINES WHEN TRIAL REMOVAL IS PERFORMED. NO CHANGE IN MENTATION. FAMILY IS UPDATED. PT REMAINS MEDICAL NO TELE STATUS
[2020-08-02 03:57] LABS: BASOPHILS ABSOLUTE AUTO 0.03 K/mm3 (0.00-0.23); BASOPHILS PERCENT AUTO 0 % (0-2); EOSINOPHILS ABSOLUTE AUTO 0.13 K/mm3 (0.00-0.68); EOSINOPHILS PERCENT AUTO 1 % (0-6); Hematocrit 36.5 % (37.0-53.0); Hemoglobin 12.3 g/dL (13.5-17.5); IMMATURE GRAN ABSOLUTE AUTO 0.08 K/mm3 (0.00-0.10); IMMATURE GRAN PERCENT AUTO 1 % (0-1); LYMPHOCYTES ABSOLUTE AUTO 1.09 K/mm3 (0.84-5.20); LYMPHOCYTES PERCENT AUTO 12 % (21-46); MONOCYTES ABSOLUTE AUTO 1.01 K/mm3 (0.16-1.47); MONOCYTES PERCENT AUTO 11 % (4-13); Mean Corpuscular HGB 28.6 pg (26.0-34.0); Mean Corpuscular HGB Conc 33.7 g/dL (31.5-36.5); Mean Corpuscular Volume 85 fL (80-100); Mean Platelet Volume 11.7 fL (9.1-12.4); NEUTROPHILS ABSOLUTE AUTO 7.05 K/mm3 (1.96-9.15); NEUTROPHILS PERCENT AUTO 75 % (41-73); Platelet Count 191 K/mm3 (150-400); RDW Coefficient Variation 17.5 % (11.7-14.2); White Blood Cell Count 9.39 K/mm3 (4.00-11.30)
[2020-08-02 04:18] LABS: Anion Gap 7 mmol/L (6-16); Blood Urea Nitrogen 33 mg/dL (8-24); Bun/Creatinine Ratio 34.5 (12.0-20.0); CO2, Blood 24 mmol/L (21-32); Calcium, Blood 7.9 mg/dL (8.5-10.1); Chloride, Blood 120 mmol/L (98-108); Creatinine, Blood 0.96 mg/dL (0.60-1.20); Glomerular Filtration Rate >60 (60-); Glucose, Blood 81 mg/dL (70-99); Magnesium, Blood 2.1 mg/dL (1.6-2.4); Phosphorus, Blood 2.1 mg/dL (2.5-4.9); Potassium, Blood 3.6 mmol/L (3.5-5.5); Sodium, Blood 151 mmol/L (136-145)
--- NOTE | 2020-08-02 05:00 | NUR ---
REFUSING CARE PT REFUSING ORAL CARE AT TIMES.
--- NOTE | 2020-08-02 05:51 | NUR ---
SHIFT SUMMARY PT SLEPT T/O SHIFT. PT ALERT AND ORIENTED TO SELF AND LOCATION AT TIMES. PT CALM. PT SLEEPING AND NOT AGGITATED. PT REPOSITIONED Q 2 HRS AND NEEDED FOR COMFORT. TERAN PATENT AND DRAINING. MEPLEX IN PLACE ON COCCYX. OXYGEN SATURATION MAINTAINED ABOVE 92% ON 2 L OF OXYGEN VIA NC. HR STABLE. BP STABLE. PT REPORTS NO CP OR PRESSURE. RESTRAINTS REMOVED AT END OF SHIFT. WILL CONTINUE TO MONITOR UNTIL REPORT GIVEN TO DAYSHIFT RN.
--- NOTE | 2020-08-02 18:47 | NUR ---
SHIFT NOTE PT RESPONDS MORE PURPOSEFULLY TO QUESTIONS TODAY. PT WITH TRACE EDEMA TO MODERATE NON-PITTING EDEMA T/O THE DAY, UPON THE 2 [address] THAT TOOK PL[address] AT 1730 PT WAS NOTED TO HAVE 2+ PITTING EDEMA TO LT FOOT AND ANKLE. HOSPITALIST WAS CALLED TO ASSESS, JANEY CAME TO ROOM. PEDAL PULSE NOTED VIA DOPPLER.
--- NOTE | 2020-08-02 22:33 | NUR ---
PHYSICIAN NOTIFIED PT REFUSING CARE AT THIS TIME. PHYSICIAN INFORMED. INSTRUCTED TO ALLOW PT TIME TO POTENTIALLY RE-ORIENT AND OFFER SMALL SNACK. WILL CONTINUE TO MONITOR.
--- NOTE | 2020-08-03 00:49 | NUR ---
PHYSICIAN NOTIFIED PHYSICIAN NOTIFIED OF PT CONTINUING TO REFUSE LOVENOX INJ. NO ORDERS GIVEN AT THIS TIME.
[2020-08-03 06:01] LABS: Alanine Aminotransfer (ALT/SGP 63 U/L (12-78); Albumin, Blood 2.2 g/dL (3.4-5.0); Albumin/Globulin Ratio 0.7 (0.8-1.8); Alk Phos 85 U/L (50-136); Anion Gap 10 mmol/L (6-16); Aspartate Aminotrans (AST/SGOT 27 U/L (12-37); Blood Urea Nitrogen 24 mg/dL (8-24); Bun/Creatinine Ratio 28.8 (12.0-20.0); CO2, Blood 22 mmol/L (21-32); Calcium, Blood 8.2 mg/dL (8.5-10.1); Chloride, Blood 118 mmol/L (98-108); Creatinine, Blood 0.83 mg/dL (0.60-1.20); Glomerular Filtration Rate >60 (60-); Glucose, Blood 73 mg/dL (70-99); Potassium, Blood 3.5 mmol/L (3.5-5.5); Sodium, Blood 150 mmol/L (136-145); Total Protein, Blood 5.2 g/dL (6.4-8.2)
--- NOTE | 2020-08-03 06:12 | NUR ---
SHIFT SUMMARY PT AGGITATED AND PARANOID T/O SHIFT. REFUSING CARE. PHYSICIAN NOTIFIED OF PT REFUSING MEDICATIONS. NO ORDERS PROVIDED. PT TURNED Q 2 HRS. PT REFUSED ORAL CARE T/O SHIFT. PT ALERT TO SELF. OXYGEN SATURATION MAINTAINED ABOVE 92% ON 2 L OF OXYGEN VIA NC. HR STABLE. BP STABLE. PT REPORTS NO CP OR PRESSURE. WILL CONTINUE TO MONITOR UNTIL REPORT GIVEN TO DAYSHIFT RN.
--- NOTE | 2020-08-03 14:50 | NUR ---
REPORT GIVEN TO RASHIDA KELLER ON MEDICAL.
--- NOTE | 2020-08-03 17:55 | NUR ---
PT RIPPED OUT IV AT 1700. WILL TRY TO ESTABLISH IV ACCESS AGAIN.
--- NOTE | 2020-08-03 18:35 | NUR ---
SHIFT SUMMARY PT IS A TRANSFER FROM PCU. HE IS A/O X1 AND VERY WITHDRAWN. HE TORE OUT HIS IV THIS SHIFT. TERAN IN PLACE, PATENT AND DRAINING. PT IS ON 1.5 LITERS O2 VIA NC BUT HAS NOT BEEING COOPERATIVE WITH WEARING IT. VSS, RESTING COMFORTABLY IN BED WITH HIS CALL LIGHT IN REACH.
--- NOTE | 2020-08-03 22:04 | NUR ---
ASSISTED WITH REPOSITIONING IN BED. HOB ELEVATED FOR COMFORT. CALL LIGHT IN REACH. TERAN DRAINING. TOLERATES SMALL AMT OF APPLE SAUCE WITH MEDS. TOLERATES SIPS OF WATER. WILL CONTINUE TO MONITOR
[2020-08-04 05:15] LABS: BASOPHILS ABSOLUTE AUTO 0.04 K/mm3 (0.00-0.23); BASOPHILS PERCENT AUTO 0 % (0-2); EOSINOPHILS ABSOLUTE AUTO 0.25 K/mm3 (0.00-0.68); EOSINOPHILS PERCENT AUTO 3 % (0-6); Hematocrit 36.8 % (37.0-53.0); Hemoglobin 12.4 g/dL (13.5-17.5); IMMATURE GRAN ABSOLUTE AUTO 0.13 K/mm3 (0.00-0.10); IMMATURE GRAN PERCENT AUTO 1 % (0-1); LYMPHOCYTES ABSOLUTE AUTO 1.11 K/mm3 (0.84-5.20); LYMPHOCYTES PERCENT AUTO 12 % (21-46); MONOCYTES ABSOLUTE AUTO 0.73 K/mm3 (0.16-1.47); MONOCYTES PERCENT AUTO 8 % (4-13); Mean Corpuscular HGB 28.1 pg (26.0-34.0); Mean Corpuscular HGB Conc 33.7 g/dL (31.5-36.5); Mean Corpuscular Volume 83 fL (80-100); Mean Platelet Volume 11.3 fL (9.1-12.4); NEUTROPHILS ABSOLUTE AUTO 6.99 K/mm3 (1.96-9.15); NEUTROPHILS PERCENT AUTO 76 % (41-73); Platelet Count 269 K/mm3 (150-400); RDW Coefficient Variation 17.6 % (11.7-14.2); RDW Standard Deviation 49.3 fL (35.1-46.3); Red Blood Cell Count 4.42 M/mm3 (4.30-5.90); White Blood Cell Count 9.25 K/mm3 (4.00-11.30)
--- NOTE | 2020-08-04 05:21 | NUR ---
SHIFT SUMMARY HAS BEEN RESTING QUIETLY WITH OCCASIONAL INERRUPTIONS. REDIRECTED BACK INTO BE POST ATTEMPT TO CLIMB OUT, UNSTEADY. BED ALARM ON. CALL LIGHT IN REACH.
[2020-08-04 05:49] LABS: Anion Gap 9 mmol/L (6-16); Blood Urea Nitrogen 20 mg/dL (8-24); Bun/Creatinine Ratio 25.5 (12.0-20.0); CO2, Blood 24 mmol/L (21-32); Calcium, Blood 8.2 mg/dL (8.5-10.1); Chloride, Blood 117 mmol/L (98-108); Creatinine, Blood 0.78 mg/dL (0.60-1.20); Glomerular Filtration Rate >60 (60-); Glucose, Blood 77 mg/dL (70-99); Potassium, Blood 3.1 mmol/L (3.5-5.5); Sodium, Blood 150 mmol/L (136-145)
--- NOTE | 2020-08-04 10:57 | NUR ---
PATIENT IS ON THE PHONE WITH HIS FAMILY AT THIS TIME
--- NOTE | 2020-08-04 11:08 | NUR ---
ENCOURAGE PO WATER INTAKE ORDERED BY DR. BOYER. THE PATIENT IS ALERT, ORIENTED TO FAMILY AND FOLLOWING DIRECTIONS. I ASKED HIM TO TAKE A DRINK OF WATER AND HE SAID THAT THAT HE WOULD ONLY DO SO IF I HELPED HIM CALL HIS FAMILY. ONCE HE HUNG UP THE PHONE, HE REMEMBERED TO TAKE A DRINK OF WATER.
--- NOTE | 2020-08-04 18:39 | NUR ---
PATIENT IS ALERT. HE CONFUSED AT THIS TIME. PATIENT SPOKE WITH HIS FAMILY OVER THE PHONE THIS MORNING AND WAS ORIENTED TO THEM. PT AND OT EVAL PLACED TODAY. PATIENT CAN BECOME AGITATED. TERAN IS IN PLACE AND PATENT. NO COMPLAINTS OF PAIN. ON 2L O2 NC. NO IV ACCESS ORDER PLACED TODAY. WILL CONTINUE TO MONITOR
--- NOTE | 2020-08-04 21:26 | NUR ---
VERY NONCOMPLIANT WITH MEDS AND EVEN REFUSED WHEN FLUIDS OFFERED. VOICED WANTING TO GIVE UP. WILL CONTINUE TO PROVIDE ENCOURAGEMENT AND REDIRECT NEGATIVE STATEMENTS. CALL LIGHT IN REACH. REPOSITIONED. HOB ELEVATED. WATCHING TV. PARUL SESAY
--- NOTE | 2020-08-05 04:32 | NUR ---
SHIFT SUMMARY AWAKE FOR FIRST HALF OF NIGHT, VOICED FEARS OF TAKING MEDS AND TRIED TO GET OUT OF BED A FEW TIMES. ASSISTED AND REPOSITIONED IN BED. ENCOURAGED TO TAKE MEDS, AFTERWHICH HE SEEMED TO FALL ASLEEP AND HAS BEEN RESTING QUIETLY WITHOUT NOTED DISTURBANCES. CALL LIGHT IN REACH. HOB ELEVATED FOR COMFORT AND TERAN DRAINING, (PT PULLED IT APART EARLIER DURING ATTEMPTS TO GET OUT OF BED. NEW TERAN BAD ATTACHED AND IS DRAINING WELL).
[2020-08-05 05:49] LABS: Anion Gap 8 mmol/L (6-16); Blood Urea Nitrogen 16 mg/dL (8-24); Bun/Creatinine Ratio 23.2 (12.0-20.0); CO2, Blood 25 mmol/L (21-32); Calcium, Blood 7.7 mg/dL (8.5-10.1); Chloride, Blood 113 mmol/L (98-108); Creatinine, Blood 0.69 mg/dL (0.60-1.20); Glomerular Filtration Rate >60 (60-); Glucose, Blood 89 mg/dL (70-99); Sodium, Blood 146 mmol/L (136-145)
[2020-08-05 14:16] LABS: Magnesium, Blood 1.8 mg/dL (1.6-2.4); Troponin I 0.071 ng/mL (0.000-0.040)
--- NOTE | 2020-08-05 17:44 | NUR ---
PATIENT IS ALERT AND ORIENTED TO SELF. HE WORKED WITH PT AND OT THIS MORNING AND TRANSFERRED TO THE CHAIR WITH 2PA, FWW AND GAITBELT. TERAN IS IN PLACE AND DRAINING. 2L O2 NC. THE FAMILY CALLED THIS MORNING AND PLAN ON DROPPING THE PATIENT'S GLASSES OFF TOMORROW. NO COMPLAINTS OF PAIN. WILL CONTINUE TO MONITOR.
--- NOTE | 2020-08-05 18:20 | NUR ---
ADMIT: 07/29/20 DISCHARGE: DX: ftt dementia CC: [email or web address] PAUL CALL: RESIDENCE: home, CAREGIVER: Kelly- [phone] Son Rolando [phone] DX: Hemiplegia, cva, dementia DME: no record, wheel chair? CCM: no record HOME HEALTH: [facility]- not sure if current services. SUMMARY: 08/05/20 PT OT rec SNF vs Hospice, if patient does participate in rehab. s/w Son Rolando, He wants to meet with Kaleigh Ozuna, Kelly, and myself to discuss current condition and options of care. Appt 3pm Wednesday08/06/20. Palliative office 2nd floor by enterance. Met with Juan today, pleasant but confused. Thinks the bank owns his home and his family is putting out with the trash. s/w Nurse Juan has been eating and taking his pills orally, no swallow issues that she is aware of. confimed 3pm appt with Chris for tomorrow. CP 08/04/19- Per chart review with Dr. Zuniga, when pt is d/c, he will go to a SNF. Family is ok with this plan. Not sure if he has been notified of his son's suicide. -kjw 07/31/20 News of Booker vincent son's last night was not shared with Juan at this time per palliative care. Patient in restrainsts mid afternoon, striking nurse with controller, gripping nurses hands trying to bend back fingers. Family requesting discharge planning help, possible need for placement. No eta for discharge at this time. Patient still in restrainsts. CP 07/30/20 reviewed [facility] note from 07/25. Discussed Home health vs Hospice, plan was to follow up with Judd in 8 weeks. Brought this to Dr Josué rogel. He ordered palliative care visit. Kaleigh from palliative care s/w on the phone, changed code status to DNR. She will follow patient tomorrow and hand off to coworkers to moniter for hospice needs. CP Admit 07/29/20 1: Severe sepsis A/P: noted with report of fever, elevated pro calcitonin, elevated WBC, elevated lactic acid. No clear source at this time. Started on empiric antibiotic by ED, reported low bp in field but note here, risk for septic shock
--- NOTE | 2020-08-05 19:09 | NUR ---
AWAKE, WATCHING TV. NO COMPLANTS VOICED. CALL LIGHT IN REACH
--- NOTE | 2020-08-05 22:15 | NUR ---
MORE RECEPTIVE TO TAKING MEDICAIONS AT HS COMPARED TO THAT OF 24 HR AGO. AFFECT FLAT. NURSE ENCOURAGED INTERACTION. LESS STOIC BY THE TIME NURSE LEFT ROOM. CALL LIGHT IN REACH. PARUL SESAY. WILL CONTINUE TO MONITOR
--- NOTE | 2020-08-06 06:37 | NUR ---
SHIFT SUMMARY HAS BEEN RESING QUIETL WITH A FWE ATTEMPTS TO GET OUT OF BED, REDIRECTED, REPOSITIONED AND IS RESTING QUIETL AGAIN. TERAN DRAINING. ALL LIGHT IN REACH
[2020-08-06 09:10] LABS: Anion Gap 9 mmol/L (6-16); Blood Urea Nitrogen 13 mg/dL (8-24); Bun/Creatinine Ratio 19.7 (12.0-20.0); CO2, Blood 25 mmol/L (21-32); Calcium, Blood 7.9 mg/dL (8.5-10.1); Chloride, Blood 110 mmol/L (98-108); Creatinine, Blood 0.66 mg/dL (0.60-1.20); Glomerular Filtration Rate >60 (60-); Glucose, Blood 86 mg/dL (70-99); Potassium, Blood 3.5 mmol/L (3.5-5.5); Sodium, Blood 144 mmol/L (136-145)
--- NOTE | 2020-08-06 17:46 | NUR ---
PT AOX0 PT SEEMS VERY FLAT AND DOESN'T WANT TO TALK A LOT. PT HAS BEEN EATING AND WAS UP FOR ALL MEALS. PT HAS A LOT OF CONFUSION AND STATES HE IS TIRED. PT IS A HEAVY TWO PERSON TRANSFER WITH GAITBELT TO CHAIR. WILL CONTINUE TO MONITOR HIM.
--- NOTE | 2020-08-06 19:22 | NUR ---
AWAKE. REPOSITIONED IN BED. TERAN IN PLACE. VERBALIZED CONFUSED STATEMENTS NO NOTED ACUTE PHYSICAL DISTRESS. CALL LIGHT IN REACH
--- NOTE | 2020-08-06 19:34 | NUR ---
08/06/20 Rolando canceled 3pm meeting today, Mom not feeling well. I spoke with both Kelly and Rolando by telephone today. [facility] denied admittance for rehab. Family is not interested in Juan going out of area for SNF. Agreed to working with KESHA Scales home care manager rn for placement in a shelter care based off his care needs and visitation policy. They are concerned that they cannot visit and support him once he learns of his sons suicide. It is still undetermined when will be the best time to tell him. Kelly feels he needs to be in a place with a DR near by incase he handles the news poorly and needs more care due to the stress. The family really wants him to stay here until they can get their affairs in order around the of Son Christiano. Family will consider home once Juan gets better and does not require as much care. I updated Kesha Scales manager of case management, Rayna, Director of care management decided Kesha should be assigned to this patient. I have asked Kesha to assess Celeste care needs. I updated Son Rolando that Kesha would be calling with further information reguarding discharge planning. I will continue to moniter this patient through discharge for physician updates.
--- NOTE | 2020-08-07 06:24 | NUR ---
SHIFT SUMMARY HAS BEEN RESTING QUIETLY WITH FEW INTRRUPTIONS SINCE HS. O2 SATS MAINTAINED IN 90'S WITH ROOM AIR. PARUL SESAY, PT ENCOURAGED NOT TO PULL ON IT. CALL LIGHT IN REACH
--- NOTE | 2020-08-07 17:29 | NUR ---
PT AOX1 AND HAS BEEN VERY DEPRESSED AND FLAT TODAY. PT HAS BEEN UP FOR MEALS AND HAD TO BE TALKED INTO TAKING HIS MEDICATION THIS MORNING. PT HAS BEEN VERY COOPERATIVE AND DOES WHAT HE IS ASKED. PT DENIED ANY PAIN. PT IS EATING DINNER AT THIS TIME WILL COTNINUE TO MONITOR.
--- NOTE | 2020-08-08 03:46 | NUR ---
Patient appeared to be extremely depressed with a very flat affect, giving only one or two word answers, and was unable to make eye contact when he would speak. When asked if he was feeling sad or depressed, patient would just look toward window and say "I don't know". No physical complaints of pain. Shanks cath draining clear raul urine. lower extremities elevated in bed with 2+edema. Encouraged patient to come out of his room tomorrow in recliner just for a change in scenery
--- NOTE | 2020-08-08 14:39 | NUR ---
HE STARTED OUT THE DAY SAYING THIS IS A [employer] [facility]SE AND THAT WE WOULD BE KILLING HIM TODAY. I TRIED TO REASSURE HIM OTHERWISE BUT HE WAS SURE THAT HE COULD NOT BELIEVE ANYTHING I SAID. I DIALED HIS 'S PHONE NUMBER THINKING THAT HE WOULD FEEL SAFER IF HE SPOKE WITH HIS FAMILY. WHILE I WAS DIALING HE SAID THERE WOULD BE A PRE-PLANNED RECORDING ON THE OTHER END, ALL PART OF THE PLAN. APPARENTLY HIS SON AND HAD A HARD TIME HEARING HIM BUT I COULD HEAR THEM EASILY FROM STANDING NEXT TO HIM. EVEN AFTER THE PHONE CALL HE WOULD NOT TAKE HIS AM MEDS. HE WAS A MAX TRANSFER TO THE CHAIR WITH 2 OF US AND BACK TO BED. HE WAS BATHED AND BY THE TIME HE WAS BACK IN BED HE WAS TIRED AND NOT DEFENSIVE. HE AGREED TO TAKE HIS AM MEDS AND DID SO WITHOUT INCIDENT. HE LATER SAT ON THE SIDE OF THE BED FOR LUNCH BUT ATE VERY LITTLE. AFTER LAYING BACK DOWN THE DISEASE AND INSECT CONTROL BOSS AND THE REPORTER EACH CAME TO SEE HIM. DISEASE AND INSECT CONTROL BOSS ROBERT SPENT TIME WITH HIM. NO FAMILY HERE YET BUT THEY ARE COMING TODAY.
--- NOTE | 2020-08-08 17:05 | NUR ---
Spiritual care note: Mr. Doll appeared sad this afternoon. When I asked him why, he told me the doctors were planning to cut him up into little piece. "Its all arranged and there's no stopping it." He then spoke about bodies being taken and replaced with clones. He seems quite confused and to be having some horrifying delusions. According to staff, family was planning to tell Mr. Doll about the of his favorite son Christiano. I placed t/c to son, Yovany, and advised against this for the time being. Mr Doll is not asking about Christiano. I am concerned that awareness of his son's by suicide may add to his delusions or that he will forget he was told. Yovany appeared to understand and agreed that the timing was not good. Pt's 2 remaining sons and his are planning to visit pt this evening. Combining Machine Operator services will remain available.
--- NOTE | 2020-08-08 18:40 | NUR ---
HE IS SITTING IN THE CHAIR AGAIN BUT HARDLY TOUCHED HIS DINNER. HE TALKS LIKE HE IS AFRAID TO MAKE A MESS IN THE CHAIR OR THE BED. HE ALSO SAYS HIS STOMACH DOESN'T FEEL GOOD. HE TRANSFERRED TO THE CHAIR MUCH BETTER TONIGHT THAN THIS MORNING. HE'S PRETTY COMFORTABLE USING THE WALKER. HE DID A SHORT AMBULATION WITH PT. HIS FOLEYWAS DC'D AT 1500. HE HAS BEEN VOIDING SMALL AMTS SINCE, USUALLY INCONTINENT BEFORE HE VOIDS MORE IN THE URINAL OR BSC.HE CAN BE BLADDER SCANNED Q6 HRS PRN AND ST.CATHED IF NEEDED. HIS FAMILY CALLED TO TALK TO HIM BUT DID NOT COME IN TODAY AFTERALL. SON SPOKE TO ME ON THE PHONE AND TO CHAPLAIN JONES ON THE PHONE AND GEOVANI FROM [employer].
--- NOTE | 2020-08-08 19:20 | NUR ---
08/08/20 Review with floor nurse and Kesha HUNTER today. Family planned to come into hosptial to discuss of son today. will follow for physician discharge information.
--- NOTE | 2020-08-09 00:07 | NUR ---
LAST NOTED BOWEL MOVEMENT WAS DAY PRIOR TO ADMISSION, PATIENT AGREED AND TOOK MILK OF MAGNESIA AT [facility]. BOWEL TONES PRESENT TIMES 4, ABD SOFT AND NON TENDER. WILL INFORM ONCOMING RN SO THIS CAN BE MONITORED UNTIL RESOLVED
[2020-08-09 04:56] LABS: BASOPHILS ABSOLUTE AUTO 0.06 K/mm3 (0.00-0.23); BASOPHILS PERCENT AUTO 1 % (0-2); EOSINOPHILS ABSOLUTE AUTO 0.33 K/mm3 (0.00-0.68); EOSINOPHILS PERCENT AUTO 4 % (0-6); Hematocrit 39.3 % (37.0-53.0); Hemoglobin 13.5 g/dL (13.5-17.5); IMMATURE GRAN ABSOLUTE AUTO 0.08 K/mm3 (0.00-0.10); IMMATURE GRAN PERCENT AUTO 1 % (0-1); LYMPHOCYTES ABSOLUTE AUTO 1.53 K/mm3 (0.84-5.20); LYMPHOCYTES PERCENT AUTO 17 % (21-46); MONOCYTES ABSOLUTE AUTO 0.95 K/mm3 (0.16-1.47); MONOCYTES PERCENT AUTO 11 % (4-13); Mean Corpuscular HGB 28.7 pg (26.0-34.0); Mean Corpuscular HGB Conc 34.4 g/dL (31.5-36.5); Mean Corpuscular Volume 83 fL (80-100); Mean Platelet Volume 10.6 fL (9.1-12.4); NEUTROPHILS ABSOLUTE AUTO 5.85 K/mm3 (1.96-9.15); NEUTROPHILS PERCENT AUTO 66 % (41-73); Platelet Count 433 K/mm3 (150-400); RDW Coefficient Variation 17.7 % (11.7-14.2); RDW Standard Deviation 51.1 fL (35.1-46.3); Red Blood Cell Count 4.71 M/mm3 (4.30-5.90)
[2020-08-09 05:15] LABS: Alanine Aminotransfer (ALT/SGP 36 U/L (12-78); Albumin, Blood 2.5 g/dL (3.4-5.0); Albumin/Globulin Ratio 0.9 (0.8-1.8); Alk Phos 80 U/L (50-136); Anion Gap 4 mmol/L (6-16); Aspartate Aminotrans (AST/SGOT 24 U/L (12-37); Bilirubin, Total 0.7 mg/dL (0.1-1.0); Blood Urea Nitrogen 17 mg/dL (8-24); CO2, Blood 33 mmol/L (21-32); Calcium, Blood 8.5 mg/dL (8.5-10.1); Chloride, Blood 108 mmol/L (98-108); Creatinine, Blood 0.85 mg/dL (0.60-1.20); Globulin, Blood 2.8 g/dL (2.2-4.0); Glomerular Filtration Rate >60 (60-); Glucose, Blood 87 mg/dL (70-99); Potassium, Blood 3.5 mmol/L (3.5-5.5); Sodium, Blood 145 mmol/L (136-145); Total Protein, Blood 5.3 g/dL (6.4-8.2)
--- NOTE | 2020-08-09 11:50 | NUR ---
HE REMAINS VERY CONFUSED BUT PLEASANT. HE HAS BEEN UP IN THE CHAIR MOST OF THE DAY SO FAR. HE HAD AN HOUR REST IN THE BED BETWEEN BREAKFAST TIME AND HIS WORKOUT WITH OT. HE PEDDLED A W/C WITH HIS FEET IN ADDITION TO A SHORT WALK IN THE ROOM. HE THINKS HE NEEDS TO GET TO SURGERY. WE TRY TO REORIENT HIM BUT H DOESN'T BELIEVE US. HE HAS BEEN MOSTLY INCONTINENT. MIRALAX GIVEN. HE ALSO HAD MOM LAST NIGHT. NO BM YET.
--- NOTE | 2020-08-09 13:02 | NUR ---
CARE COORDINATION REFERRAL - ADMIT: 07/29/20 DISCHARGE: DX: FTT DEMENTIA CC: KENDALL MUNSONBENJISARA SUMMARY: 08/09/20- PER CHART REVIEW WITH DR. RUBI, PT HAS NO ETA FOR D/C AT THIS TIME. PER CHART REVIEW, PT WAS NOT TOLD ABOUT HIS SON YESTERDAY STAFF FELT HIS MENTATION/DEPRESSION, WAS NOT AN APPROPRIATE TIME. RICO WITH [facility] IS HELPING TO FIND PLACEMENT FOR PT. KRANTHI WITH [facility] IS CALLING OUT OF AREA SNF BECAUSE ANT DECLINED PT. -GUERRERO
--- NOTE | 2020-08-09 15:49 | NUR ---
HE WORKED WITH OT AND PT. THEIR ASSESSMENTS SHOWED LOW MOTIVATION AND AVOIDANCE. RIGHT NOW HE IS SITTING ON THE FAR SIDE OF THE BED. BED ALARM ON. HE DOESN'T WANT TO GO ANYWHERE BUT NEEDED A CHANGE OF POSITION. HIS EARLIER BLADDER SCAN SHOWED 142 MLS. NO INTERVENTION NEEDED.
--- NOTE | 2020-08-09 16:57 | NUR ---
HE HAS BEEN UP IN THE CHAIR OR SITTING ON THE SIDE OF THE BED TODAY. THE EDEMA HAS INCREASED IN HIS LOWER LEGS AND FEET. HE JUST AGREED TO PUT HIS LEGS UP IN THE BED FOR AWHILE. HE HASN'T VOIDED MUCH TODAY, BUT HIS BLADDER SCAN THIS AFTERNOON ONLY SHOWED 142 MLS. HE HAS SMALL TO MODERATE PO FLUID INTAKE. NO BM YET AFTER BOWEL CARE. HIS FATALISTIC REFERENCES ARE BACK. HE SPOKE LIKE THAT MORE YESTERDAY THAN TODAY. HE FEELS LIKE THERE IS A PLAN TO HAVE HIM BY TONIGHT. HIS SON STAN CALLED AND MENTIONED THAT THE MANAGER ESTATE ON THE ROOM PHONE WHEN THEY TRIED TO TALK TO SHELDON WAS TERRIBLE. I REPLACED THE PHONE AND CALLED HIM BACK FROM SHELDON'S NEW PHONE. HE IS NOW SPEAKING TO HIS .
--- NOTE | 2020-08-09 19:25 | NUR ---
ASSUMED CARE RECEIVED REPORT FROM KRSIHNA JACINTO. PT RESTING IN BED COMFORTABLY, NO S/S ACUTE DISTRESS NOTED, RESPS E/U. NO ACUTE NEEDS ASSESSED AT THIS TIME. CALL LIGHT, POSSESSIONS IN REACH, BED IN LOW POSITION WITH ALARMS ON. WCTM.
--- NOTE | 2020-08-10 05:58 | NUR ---
SHIFT SUMMARY PT RESTING COMFORTABLY, NO S/S ACUTE DISTRESS NOTED. WAS MONITORED EVERY 1-2 HOURS WITH NEEDS MET. NO ACUTE NEEDS ASSESSED AT THIS TIME. VS REVIEWED, WNL. PT HAS BEEN VOIDING W/O DIFFICULTY T/O NIGHT, MOSTLY INCONTINENT; BUT DOES VOID SMALL AMOUNTS IN URINAL. ATTENDS IN PLACE, CHECKED AND CHANGED PRN. CALM AND COOPERATIVE WITH CARES. CALL LIGHT, POSSESSIONS IN REACH, BED IN LOW POSITION WITH ALARMS ON. WILL CONTINUE TO MONITOR UNTIL REPORT GIVEN TO DAY RN.
--- NOTE | 2020-08-10 18:20 | NUR ---
SHIFT SUMMARY PT RESTING QUIETLY AWAKE AT START OF SHIFT. CONFUSED AND DISORIENTED. PT SOON ATTEMPTING TO GET OOB, SETTING OFF BED ALARM. PT VERY WEAK AND UNABLE TO GET TO CHAIR AT BS THIS AM, EVEN WITH 2P ASSIST. PT HAS DIFFICULTY FOLLOWING DIRECTIONS; HX OF DEMENTIA. PT INCONTINENT OF URINE. IV LASIX ORDER TODAY, BUT PT HAS NO IV ACCESS. LASIX CHANGED TO PO. LE EDEMA IMPROVING WITH LASIX AND ELEVATION. PT NOT WANTING TO EAT OR DRINK VERY MUCH. DIFFICULT TO ENCOURAGE PO INTAKE. MEDS TAKEN WHOLE, WITH WATER OR FOOD. BED AND CHAIR ALARMS ON FOR SAFETY. CALL LT IN REACH.
--- NOTE | 2020-08-10 19:20 | NUR ---
ASSUMED CARE RECEIVED REPORT FROM KRISHNA WICK. PT SITTING UP IN CHAIR, NO S/S ACUTE DISTRESS OR NEEDS NOTED AT THIS TIME. CALL LIGHT, POSSESSIONS IN REACH, CHAIR ALARM ON. WCTM.
--- NOTE | 2020-08-11 05:53 | NUR ---
SHIFT SUMMARY PT ASLEEP, NO S/S ACUTE DISTRESS OR CHANGES IN CONDITION T/O NIGHT NOTED. WAS MONITORED EVERY 1-2 HOURS WITH NEEDS MET. SLEPT T/O NIGHT. VS REVIEWED, WNL. DENIES PAIN . CALL LIGHT, POSSESSIONS IN REACH, BED IN LOW POSITION WITH ALARMS ON. WILL CONTINUE TO MONITOR UNTIL REPORT GIVEN TO DAY RN.
--- NOTE | 2020-08-11 11:16 | NUR ---
Summary: 08/11/20- Per chart review with Dr. Pack, discharge will be when a SNF has been found for pt to go to. [facility] are helping find placement for pt. D/C will be once a place has been found for him. -noa
--- NOTE | 2020-08-11 17:19 | NUR ---
SHIFT SUMMARY PT SLEPT FOR MOST OF THE MORNING, NOT WANTING TO EAT BREAKFAST. PT ENCOURAGED TO SIT UP FOR LUNCH. PT EVENTUALLY ATE 50% OF HIS LUNCH. PT NOT WANTING TO DRINK MUCH AT ALL EITHER. HAVING TO ENCOURAGE FLUID INTAKE, EVEN THOUGH ON F/R. STRICT I&O'S ORDERED. PT HAS BEEN COMPLETELY INCONTINENT OF BOWEL AND BLADDER. CONDOM CATH PLACED TO OBTAIN MORE ACCURATE URINE OUTPUT. PT REMAINS VERY WEAK AND DECONDITIONED. PT SITTING UP TO EOB, BUT NOT EVEN ABLE TO KEEP FROM SLIDING OUT WITH FEET ON THE FLOOR. PT UNABLE TO STAND ENOUGH OR LONG ENOUGH TO PIVOT TO CHAIR AT BS TODAY. PT HAS BEEN PLEASANT AND REMAINED AWAKE SINCE SITTING UP FOR LUNCH. APPEARS TO BE VERY DEPRESSED WITH FLAT AFFECT. CONSUMER RELATIONS COMPLAINT CLERKINDUN ATTEMPTED TO ENCOURAGE PT, SITTING AT BS TALKING WITH PT FOR A WHILE. CONSUMER RELATIONS COMPLAINT CLERK ASSISTED PT IN CALLING AND SON TO TALK ON PHONE. PT SEEMED A LITTLE MORE ENCOURAGED AFTERWARDS. BED ALARM ON FOR SAFETY. CALL LT IN REACH.
--- NOTE | 2020-08-11 19:08 | NUR ---
ASSUMED CARE RECEIVED REPORT FROM KRISHNA WICK. PT SITTING UP IN BED, NO ACUTE NEEDS OR DISTRESS NOTED. OFFERED SOME SIPS OF MILK, PT TOLERATED WELL. PROVIDED ENCOURAGEMENT TO DRINK. DENIES NEEDS. CALL LIGHT, POSSESSIONS IN REACH, BED IN LOW POSITION WITH ALARMS ON. CONTINUE TO MONITOR.
--- NOTE | 2020-08-12 04:55 | NUR ---
SHIFT SUMMARY PT ASLEEP, NO S/S ACUTE DISTRESS NOTED. WAS MONITORED EVERY 1-2 HOURS WITH NEEDS MET. NO ACUTE CHANGES IN CONDITION NOTED T/O NIGHT. ENCOURAGED FLUIDS WHILE AWAKE, WITH MODERATE INTAKE. NO ACUTE NEEDS NOTED AT THIS TIME. CALL LIGHT, POSSESSIONS IN REACH, BED IN LOW POSITION WITH ALARMS ON. CONTINUE TO MONITOR UNTIL REPORT GIVEN TO DAY RN.
--- NOTE | 2020-08-12 17:13 | NUR ---
08/12/20 Kesha is not in today to make contact with son Rolando. I spoke with Nikki city planner, told her I would try to contact Rolando today. PT is still recommending SNF, nurse states patient does not want to take medications,Patient says it will not do him any good. I was unable to reach Rolando at home phone or work phone. No voicemail available. I updated Nikki about no contact with Rolando. I reached out to [facility], s/w [facility]. If Juan lives in a independant apartment he can have visitors. I will recommend to Rolando that living at [facility] and hiring a maritime officer caregiver, home health for rehab ( or hospice) may be a option for care with out bringing him home. Rolando did say in earlier conversation that they could afford self pay care options if they could visit him in person. I also left a message with Fer arredondo and [facility] is going to call me back about visiting options.
--- NOTE | 2020-08-12 17:34 | NUR ---
PT BP/PHYSICIAN NOTIFICATION THIS RN CALLED DR. SHIRLEY AT APPROXIMATELY 1600 FOR PT BP OF 59/37 AND LOWERED LOC. PT STILL RESPONDING TO VERBAL COMMANDS, BUT EYES CLOSED. THIS RN RECIEVED ORDERS FOR BP MEDICATIONS TO BE DC'D AND 1 LITER OF FLUIDS TO BE ADMINISTERED VIA IV. AFTER FLUID BOLUS PT BP IS 119/59 AND EYES ARE OPEN WITH PT STATING, "I FEEL BETTER NOW." THIS RN WILL CONTINUE TO MONITOR PT STATUS.
--- NOTE | 2020-08-12 17:40 | NUR ---
SHIFT SUMMARY PT IS AOX4 BUT SOMNOLENT. PT HAD FLAT AFFECT THIS AM BUT BETTER AROUND MIDDAY. PT MEDICATED FOR PAIN X1 PER EMAR. PT DENIES N/V, SOB/. PT HAD EPISODE OF HYPOTENSION THIS ZE-SEE NOTE. PT WORKED WITH PT/OT TODAY AN IS A 2 MAX ASSIST FOR TRANSFERS. PT HAD VOLUNTEER VISITOR TODAY. PLAN IS FOR PLACEMENT. PT IS IN BED, CALL LIGHT IN REACH, BED IN LOW POSITION.
--- NOTE | 2020-08-13 04:23 | NUR ---
SHIFT SUMMARY ASSUMED CARE OF PT AT 1900. PT IS A/OX3. HEART SOUNDS REGULAR, LUNG SOUNDS CLEAR. PT AFFECT IS FLAT AND PT HAS VERY SHORT RESPONSES WHEN ANSWERING QUESTIONS. PT HAD CONDOM CATH ON T/O THE NIGHT. BLADDER SCAN THIS AM WAS 98CC. PT HAS STAGE TWO PRESSURE ULCER ON BOTTOM. NEW PICTURES IN CHART AND NEW DRESSING APPLIED. CALL LIGHT IN REACH, BED IN LOWEST POSITION, BED ALARM ON.
--- NOTE | 2020-08-13 17:42 | NUR ---
SHIFT SUMMARY PATIENT DENIES PAIN, NAUSEA, AND SHORTNESS OF BREATH. PATIENT WORKED WITH PT TODAY. UP 1-2 ASSIST W/FWW TO CHAIR. PATIENT WITHDRAWN AND STATES HE HAS NO APPETITE AMD JUST WANTS TO SLEEP. POOR PO INTAKE. MEPILEX TO COCCYX WOUND C/D/I.
--- NOTE | 2020-08-13 18:26 | NUR ---
08/13/20 Spoke with son Rolando by telephone today, discussed snf, Rolando asked that he be reviewed again by Malka. Also look in [facility] for possible snf. Kesha, mcm not in today, Francesca graciously helping me to review [facility]. Jennifer will talk to Gill again. Discussed penitentiary care, memory care and visiting policys. visiting allowed at this time because COVID not highrisk at this time. This can change depending on new daily cases. Still required to quarrentine at move in. Independant living/ hiring caregiver flower planter and home health could provide visiting and flower planter care. Meeting with Rolando, , myself and Fabio from Palliative care at 2pm on Wednesday here at the hospital. Decision to tell Juan about sons suicide per floor nurse, palliative care nurse and physical Therapy all agree it is family decsion. Juan is not asking for his son at this time. Dr Ye today felt Juan may be appropriate for Hospice at this time, low blood pressure today. Physical Therapy said Juan is a minimal assist, for bed mobility and standing, short walk to chair, 2 people standing by. Recommending SNF.
[2020-08-14 05:43] LABS: BASOPHILS ABSOLUTE AUTO 0.08 K/mm3 (0.00-0.23); BASOPHILS PERCENT AUTO 1 % (0-2); EOSINOPHILS ABSOLUTE AUTO 0.45 K/mm3 (0.00-0.68); EOSINOPHILS PERCENT AUTO 5 % (0-6); Hematocrit 40.2 % (37.0-53.0); Hemoglobin 13.3 g/dL (13.5-17.5); IMMATURE GRAN ABSOLUTE AUTO 0.06 K/mm3 (0.00-0.10); IMMATURE GRAN PERCENT AUTO 1 % (0-1); LYMPHOCYTES ABSOLUTE AUTO 1.42 K/mm3 (0.84-5.20); LYMPHOCYTES PERCENT AUTO 15 % (21-46); MONOCYTES ABSOLUTE AUTO 1.05 K/mm3 (0.16-1.47); MONOCYTES PERCENT AUTO 11 % (4-13); Mean Corpuscular HGB Conc 33.1 g/dL (31.5-36.5); Mean Corpuscular Volume 85 fL (80-100); Mean Platelet Volume 10.5 fL (9.1-12.4); NEUTROPHILS ABSOLUTE AUTO 6.64 K/mm3 (1.96-9.15); NEUTROPHILS PERCENT AUTO 69 % (41-73); Platelet Count 532 K/mm3 (150-400); RDW Coefficient Variation 17.6 % (11.7-14.2); RDW Standard Deviation 54.2 fL (35.1-46.3); Red Blood Cell Count 4.75 M/mm3 (4.30-5.90)
[2020-08-14 06:06] LABS: Alanine Aminotransfer (ALT/SGP 21 U/L (12-78); Albumin, Blood 2.5 g/dL (3.4-5.0); Albumin/Globulin Ratio 0.8 (0.8-1.8); Alk Phos 87 U/L (50-136); Anion Gap 7 mmol/L (6-16); Aspartate Aminotrans (AST/SGOT 16 U/L (12-37); Bilirubin, Total 0.9 mg/dL (0.1-1.0); Blood Urea Nitrogen 22 mg/dL (8-24); Bun/Creatinine Ratio 24.8 (12.0-20.0); CO2, Blood 29 mmol/L (21-32); Calcium, Blood 8.5 mg/dL (8.5-10.1); Chloride, Blood 106 mmol/L (98-108); Creatinine, Blood 0.89 mg/dL (0.60-1.20); Glomerular Filtration Rate >60 (60-); Glucose, Blood 118 mg/dL (70-99); Potassium, Blood 3.6 mmol/L (3.5-5.5); Sodium, Blood 142 mmol/L (136-145); Total Protein, Blood 5.5 g/dL (6.4-8.2)
--- NOTE | 2020-08-14 06:46 | NUR ---
SHIFT SUMMARY PT IS AN 85 Y/O MALE, ADMITTED FOR SEVERE SEPSIS. HE IS A&O X SELF AND FAMILY, WITH A DEPRESSED AFFECT. PT REFUSED HIS HS MEDICATIONS, STATING "I JUST WANT TO SLEEP". DENIED ANY C/O PAIN, NAUSEA OR SOB AND SLEPT WELL THROUGH THE NIGHT. VITAL SIGNS STABLE. NO ACUTE CHANGES IN PT CONDITION NOTED. WILL CONTINUE TO MONITOR AND TREAT PER EMAR UNTIL HAND OFF TO DAY SHIFT RN.
--- NOTE | 2020-08-14 09:59 | NUR ---
Pt resting in bed with untouched breakfast sitting in front of him. Inquired about appetite and untouched breakfast. Pt states "I don't eat dirt". Asked Pt what he normaly eats for breakfast with Pt responding "usually this kind of thing but I prefer lilibeth". Pt is A&OX1/2. Pt unable to appropriately verbalize name of hospital and reason for hospital stay. Pt appears withdrawn and speaks in short sentences. Spoke with Bedside RN Daya and discussed case. Daya reports Pt is willing to work with therapy but is not cooperative with meals and care. Pt has poor oral intake. Plan for family meeting this afternoon with [employer] Coloring Checker Jasmin and this RN.
--- NOTE | 2020-08-14 15:38 | NUR ---
Case Conference Note Spoke with Bedside RN Daya after visiting with Pt this AM. Pt requires assistance with transfers, ambulation, bathing, dressing, and is incontinent of bowel and bladder. Pt's appetite has significantly decreased. Pt has not been taking in food and fluid for 2 days. This RN, [employer] Jasmin, and Principal Planner Destiny met with family this afternoon. Engaged in therapeutic discussion regarding goals of discharge. Discussed options and listened to concerns. Discussed hospice as an option and educated on hospice philosophy. Family reports Pt would benefit from hospice and is agreeable. Family is also requesting assistance with placement. Jasmin answers questions and potential placement options. PPS 40% ADLs 5/6 FAST 7C Palliative Care will remain available
--- NOTE | 2020-08-14 16:06 | NUR ---
08/14/20 Met with Rolando Mendoza and brother, Discussed snf, patient not eating or drinking, Fabio with Palliative says could be ready for hospice very soon if he continues not to eat or drink. Discussed home with hospice, not a good option due to animals in the home. Discussed Memory care, with or without hospice. Has dx of dementia, could provide him with level of care that he needs. Family to meet with Juan today and make final descion of placement. Erma is helping with calling the [facility] cares for availability. I was told that [facility] has opening at this time. Gave son Rolando list of facilitys, contact names and telephone numbers to call when we find the openings for him. Kelly would like to talk to about the status of his pulmonary embolisms. Text to Dr Ye to call family later.
--- NOTE | 2020-08-14 17:38 | NUR ---
Spiritual care note: Participated with family meeting today with spouse, Kelly, and two sons Rolando and Renny. Jasmin from [place] and Fabio with palliative care discussed plan going forward. Kelly was tearful and expressed deep sorrow with loss of youngest son and Juan's mental decline. Apparently, Juan has been talking about wanting to for a few weeks before this hospitalization. Family removed all guns from house. Fabio gently explained Juan's signs of advancing dementia. Family tells us that Juan had stopped eating and drinking at home. They appear to understand that Juan is nearing end of life. wants to tell Juan about the suicide of youngest son. Rolando and Renyn asked about facilities for Juan as they can no longer care for him at home. Kelly is requiring more and more care. This family is stressed on many levels and they respond well to being heard and afirmed. Decision made to place Juan in memory care facility with transition to hospice as he continues to decline. Per family request, I went with them to speak to Juan. Kelly immediately told him about [facility] . Juan appeared quite frail and very weak. He took this information quietly and began to talk about a conspiracy to "take all of us eventually." He began to talk about "losing all our possessions" and was focused on "what they are doing." He could not say who. Family tried to talk to Juan about happier things like his pets. But Juan could not beleive they were alive and ok. begged Juan to eat and drink. She was tearful and repeated "I can't lose you too." Juan appears to think he has no choice in the matter and appears calm, but delusional. I provided mortgage counselor and comfort to son, Rolando, outside of room.Helped him form a plan of action going forward. he is clearly overwhelmed by paperwork and decisions. He was appreciative of conversation and bereavement education. We have an easy rapport and Rolando has my contact information. I will remain available.
--- NOTE | 2020-08-14 18:42 | NUR ---
SHIFT SUMMARY PATIENT DENIES PAIN, NAUSEA, AND SHORTNESS OF BREATH. PATIENT WITHDRAWN AND UNINTERESTED IN FOOD OR DRINK FIRST HALF OF SHIFT. FAMILY MEETING WITH PALLIATIVE CARE TO CONSIDER HOSPICE HELD THIS AFTERNOON. PATIENT MORE SOCIAL AND ATE FULL DINNER AFTER VISIT FROM FAMILY. PATIENT DECLINED TO GET OUT OF BED TODAY.
--- NOTE | 2020-08-15 01:07 | NUR ---
08/14/201949 PT RESTING COMFORTABLY IN BED; PT VOICED HE RETIRED FROM [employer] AFTER TWENTY YEARS IN 1974; CHEERFUL; BED ALARM APPLIED FOR SAFETY.
--- NOTE | 2020-08-15 03:32 | NUR ---
SHIFT SUMMARY: 85 Y/O MALE RESTED QUIETLY ALL SHIFT; PT ALERT AND ORIENTED X 2 AND ABLE TO FOLLOW SIMPLE VERBAL COMMANDS; DENIES PAIN OR NAUSEA; PT PENDING POSSIBLE HOSPICE REFERRAL TODAY; BED ALARM APPLIED FOR SAFETY, BED LOW POSITION WITH CALL LIGHT AT SIDE.
--- NOTE | 2020-08-15 08:50 | NUR ---
patient gave permission to give care on 08/15/20.
--- NOTE | 2020-08-15 17:12 | NUR ---
SHIFT SUMMARY PT VERY DEPRESSED T/O THE DAY. PT HAS FLAT AFFECT. AVOIDS EYE CONTACT WHEN TALKING WITH STAFF. PT STATES HE DOESNT NEED ANYTHING FOR PAIN. TOLERATING SMALL AMOUNTS AT MEALTIMES. VERY POOR FLUID INTAKE. MINIMAL URINE OUTPUT. BLADDER SCAN VOLUME OF [address] SHIRLEY NOTIFIED. IV FLUIDS TO BE STARTED. NO OTHER ACUTE CHANGES IN ASSESSMENT AT THIS TIME. SACRAL DRESSING INTACT. PT RESTING IN BED. CALL LIGHT IN REACH.
--- NOTE | 2020-08-15 17:38 | NUR ---
08/15/20 s/w Rolando by telephone, [facility] are reviewing [facility] records for admittance. Rolando is concerned about cost, told him to call both facilities to discuss. Kelly wants to apply at the [facility] for benefits. I made contact with [place] [phone] at the [facility], told me he would call me back with the most efficent way to apply due to covid policys. Michael did not call me back today. Updated Rolando by telephone to look for [facility] DD214. I will call Michael again on Wednesday. cp
--- NOTE | 2020-08-15 20:22 | NUR ---
2000 PT RESTING COMFORTABLY IN BED; WARM BLANKET APPLIED TO LEFT ARM PATIENT STILL REQUIRES IV; FLAT AFFECT NOTED WITH PT VOICING HE JUST WANTS TO WITH LISTENING EAR PROVIDED BY THIS NURSE.
--- NOTE | 2020-08-16 03:10 | NUR ---
SHIFT SUMMARY: 85 Y/O MALE RESTED COMFORTABLY ALL SHIFT; PT VERY QUIET, FLAT AFFECT AND WITHDRAWN WITH MINIMAL INTERACTION WITH STAFF THIS SHIFT; PT HAS IV .9NS INFUSING AT 100ML/HR VIA LFA; PT VOICED HE JUSTS DESIRE TO ; HOSPICE REFERRAL PENDING; ALERT AND ORIENTED X 2, ABLE TO FOLLOW SIMPLE VERBAL COMMANDS; PT DRANK FLUIDS POORLY THIS SHIFT; BED ALARM APPLIED FOR SAFETY, BED LOW POSITION WITH CALL LIGHT AT SIDE.
--- NOTE | 2020-08-16 12:01 | NUR ---
PO FLUID INTAKE IMPROVED PT PO FLUIDS INTAKE HAS IMPROVED. NOTIFIED DR. SHIRLEY. IV FLUIDS DCED.
--- NOTE | 2020-08-16 17:30 | NUR ---
ADMIT: 07/29/20 DISCHARGE: DX: [id number] dementia CC: [email or web address] 08/16/20 s/w Son Rolando by phone, Call [facility] de[facility], , ext [phone], [place] [phone]. Will complete application by fax or email. Has copy of DD214. [facility] will assess Juan on Wednesday, Move in on Wednesday if appropriate. per Elsa at [place]. cp
--- NOTE | 2020-08-16 18:00 | NUR ---
SHIFT SUMMARY PT REFUSED MEDICATIONS THIS MORNING. PT AGREEABLE TO PHYSICAL THERAPY LATER IN THE MORNING AND SAT UP IN CHAIR FOR A FEW HOURS. PT ATE SMALL AMOUNTS FOR EACH MEAL TODAY. PT DRANK MOST OF AN ENSURE MILKSHAKE WITH BREAKFAST. IV FLUIDS STOPPED AT THIS TIME DUE TO IMPROVEMENT IN PO INTAKE. PT NAPPED THIS AFTERNOON AND IS NOW UP IN BED EATING DINNER. VS REVIEWED. CALL LIGHT IN REACH. DC PLANNING WORKING ON PLACEMENT/DISCHARGE
--- NOTE | 2020-08-16 21:29 | NUR ---
1999 85 Y/O MALE RESTING COMFORTABLY IN BED; ALERT AND ORIENTED X 1; PT HAS FLAT AND WITHDRAWN AFFECT NOTED BY THIS NURSE; BED ALARM APPLIED FOR SAFETY.
--- NOTE | 2020-08-17 03:50 | NUR ---
SHIFT SUMMARY: 85 Y/O MALE RESTED COMFORTABLY ALL SHIFT; PT IS ALERT AND ORIENTED X 2, ABLE TO FOLLOW SIMPLE VERBAL COMMANDS; DENIES PAIN OR NAUSEA; TOOK ALL H.S. MEDS WITHOUT ISSUE; PT CONTINUES TO VOICE THAT HE JUST WANTS TO WITH FLAT AND WITHDRAWN AFFECT NOTED; BED ALARM APPLIED, BED LOW POSITION WITH CALL LIGHT AT SIDE.
--- NOTE | 2020-08-17 19:07 | NUR ---
SHIFT SUMMARY PT IN BED FOR BREAKFAST AND WOULDN'T EAT. UP IN CHAIR FOR LUNCH AND DID EAT LUNCH BUT THEN REFUSED SUPPER WHILE IN CHAIR. WAS INCREASINGLY CONFUSED AND INSISTING HE WAS SUPPOSED TO LEAVE THIS EVENING. ATTEMPTED REASSURING PT BUT HE DIDN'T ACCEPT REASSURANCE. SON DID CALL AND SPEAK WITH HIM FOR SHORT TIME. WILL REPORT TO ONCOMING SHIFT.
--- NOTE | 2020-08-18 04:42 | NUR ---
PATIENT HAS BEEN PLEASANTLY CONFUSED. COOPERATIVE WITH STAFF. VITALS HAVE BEEN STABLE. PATIENT TOOK HIS HS MEDS THEN HAS SLEPT T/O THE NIGHT. NO COMPLAINTS OR INDICATION OF PAIN NOTED OR REPORTED. NO ACUTE CHANGES TO REPORT OF AT THIS TIME. CALL LIGHT WITHIN REACH.
--- NOTE | 2020-08-18 17:50 | NUR ---
SHIFT SUMMARY PT UP IN CHAIR THIS MORNING. ASSISTED BACK TO BED AFTER BREAKFAST BUT THEN ATTEMPTED TO GET UP ON HIS OWN SAYING HE ISN'T SUPPOSED TO BE THERE AND HE NEEDS TO WAIT FOR SOMEONE. UP IN CHAIR TIL AFTER LUNCH AND THEN LAID DOWN AND SLEPT. MORE CONFUSED TODAY THAN YESTERDAY.
--- NOTE | 2020-08-19 03:37 | NUR ---
ONLY NOTABLE CHANGE THIS SHIFT IS THAT PATIENT WAS GIVEN A UT DULCOLAX IT HAD BEEN CLOSE TO A WEEK WITHOUT A BM AND THE DULCOLAX WAS EFFECTIVE. OTHERWISE THE PATIENT HAS BEEN SLEEPING IN BED THIS SHIFT. NO OTHER CHANGES TO REPORT ON AT THIS TIME. WILL CONTINUE TO MONITOR AND PROVIDE CARE NEEDED.
--- NOTE | 2020-08-19 10:15 | NUR ---
08/19/20 s/w Elsa at [place], move in assessment has not been completed as of this morning. Elsa will complete this afternoon and let me know when move in is available. Elsa will also fax move in orderes to Dr Valladares to be completed for move in. Left message for Nikki HUNTER to update her notes, Updated DR Moses, no discharge today.
--- NOTE | 2020-08-19 19:20 | NUR ---
SHIFT SUMMARY: NO ACUTE CHANGES TO REPORT THIS SHIFT. PT A&O; FLAT AFFECT; CALM AND COOPERATIVE WITH CARE. MEDICATED FOR PAIN PER EMAR. EXPECTEDD/C TO FACILITY c HOSPICE ON MONDAY 08/21. REPORT GIVEN TO ONCOMING RN.
--- NOTE | 2020-08-19 19:22 | NUR ---
Spiritual care note: Per family request, I met with pt and family to help them complete paperwork for [facility]. Mr. 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 He appeared confused at times, but mostly seemed lucid. Just very weak/frail. and son are loving and devoted. Family plans on pt going to Memory care post discharge. Juan knows he is not returning home. Prayer provided. I will remain available.
--- NOTE | 2020-08-19 20:59 | NUR ---
ASSUMED CARE. SHELDON IS AOX2 BUT WHEN TALKING TO HIM APPEARS TO BE CONFUSED AT TIMES. DENIES ANY PAIN OR DISCOMFORT. REPORTS GOOD APPETITE. ATTENEDS WET, CHANGED ATTENDS, HE WAS ABLE TO ROLL OVER IN BED. DENIED ANY NEEDS AT THIS TIME. PM MEDS GIVEN. CALL LIGHT IS IN REACH.
--- NOTE | 2020-08-20 05:54 | NUR ---
SHIFT SUMMARY: AOX2, HAD SOME CONFUSION T/O THE NIGHT. THOUGHT HE HAD TO GET UP AND GET READY THIS AM BUT COULD NOT REMEMBER WHAT FOR. FLAT AFFECT. DENIED PAIN THIS SHIFT. VS WNL EXCEPT TACHYCARDIC IN LOW 100'S. INCONTIENT/CONTIENT OF STOOL. SLEPT WELL T/O SHIFT. NO ACUTE CHANGES TO REPORT. CALL LIGHT HAS REMAINED IN REACH, BED ALARM ON.
--- NOTE | 2020-08-20 19:13 | NUR ---
SHIFT SUMAMRY: NO ACUTE CHANGES TO REPORT THIS SHIFT. PT A&O X2-3; CALM AND COOPERATIVE WITH CARE. NO C/O PAIN THIS SHIFT. EXPECTED D/C HOME c HOSPICE 08/21. REPORT GIVEN TO ONCOMING RN.
--- NOTE | 2020-08-20 21:28 | NUR ---
ASSUMED CARE: AOX2, TIRED AND FATIQUED TODAY. DENIES PAIN OR DISCOMFORT. IS TACHYCARDIC RUNNING IN THE 110'S. "I HAD PAIN IN MY HEART TODAY". HE DESCRIBED SHARP STABBING THAT DID NOT LAST LONG. DENIES ANY PALPITAITONS OR CHEST PAIN AT THIS TIME. REST OF VS ARE WNL. USED URINAL WITH PROCESS CHECKER, ATTENDS DRY. EDEMA IMPROVING. MEDS GIVEN PER ORDERS. REPOSITIONED, AND TUCKED INTO BED. CALL LIGHT IS IN REACH, BED ALARM IS ON.
--- NOTE | 2020-08-21 06:04 | NUR ---
SHIFT SUMMARY: AOX2, OCCATIONAL CONFUSION AND FORGETFULNESS. HAD NO COMPLAINTS THIS SHIFT. SLEPT ALL NIGHT EXCEPT WHEN WE WOKE HIM. HE DID REPORT YESTERDAY HE HAD HEART PAIN THAT WAS SHARP AND STABBING, IT DID NOT LAST LONG. HE DID NOT HAVE IT AGAIN. NO CHEST PAIN THIS SHIFT. NO OTHER CHANGES. UP THIS AM. CALL LIGHT IS WITH IN REACH, BED ALARM ON.
[2020-08-21] MEDS ORDERED: XARELTO15 MG PO (13:57)
[2020-08-21] MEDS ORDERED: OLAN5A MM (13:57)
[2020-08-21] MEDS ORDERED: DOCU100 PO (13:57)
--- NOTE | 2020-08-21 15:13 | NUR ---
DISCHARGE THIS AM PT STATE CONTINUING WEAKNESS/FATIGUE. HE IS A/O X2-3, FORGETFUL. STATE KNOWLEDGE THAT HE MAY BE DISCHARGING TODAY TO ASSISTED LIVING. HE STATE NO PAIN OR SOB. [employer] D/C WEB PRESS ROLL TENDERGEOVANI STATE THAT SHE IS ARRANGING D/C TO [facility] w HOSPICE SERVICES TO F/U, STATE SHE WILL CONTACT FAMILY. DR MURPHY IN TO SEE PT, PLACE D/C ORDERS. SHEET METAL INSTALLER FAX ORDER TO [facility]. PT PARTICIPATE w OCCTHER, DRESSED IN HOSP SCRUBS. W/C [facility] TRANSPORTATION ARRIVE APPROX 1500 TO TAKE PT TO ASSISTED LIVING. HE IS CALM, SOMEWHAT FLAT, GENERALLY PLEASANT.
--- NOTE | 2020-08-21 16:06 | NUR ---
08/20/20 Discharge to [facility] today at 3pm, [facility] orders to [facility] to contact family and start services 08/22/19. Son Connor at facility for move in today. Transported by wheelchair, [facility]. Orders faxed to [facility] for [facility] discharge today. Call Elsa at [facility] for morena. Patient will remain on xaralto until family decides to discontinue with Hospice. Xaralto will be billed to regular insurance. samra
== END 2020-08-21 14:55 | disposition hospice, home (50) | DRG 871 ==
LOC: ER 14:56 → ICUW 17:43 → PCU 17:43 → ICUE 18:30 → PCU 07-30 14:30 → MEDS 08-03 14:46
PROVIDERS: Family Medicine; Internal Medicine; Pharmacist; Student in an Organized Health Care Education/Training Program; ADMIT Hospitalist
DX: A41.9 Sepsis, unspecified organism (principal); G92 Toxic encephalopathy; I21.4 Non-ST elevation (NSTEMI) myocardial infarction; I26.09 Other pulmonary embolism with acute cor pulmonale; N17.9 Acute kidney failure, unspecified; E87.0 Hyperosmolality and hypernatremia; N39.0 Urinary tract infection, site not specified; Z20.822 Contact with and (suspected) exposure to COVID-19; Z66 Do not resuscitate; L89.302 Pressure ulcer of unspecified buttock, stage 2; E86.0 Dehydration; R54 Age-related physical debility; I10 Essential (primary) hypertension; E87.6 Hypokalemia; R65.20 Severe sepsis without septic shock; Z86.73 Personal history of transient ischemic attack (TIA), and cerebral infarction without residual deficits; F03.90 Unspecified dementia, unspecified severity, without behavioral disturbance, psychotic disturbance, mood disturbance, and anxiety; Z51.5 Encounter for palliative care; I25.10 Atherosclerotic heart disease of native coronary artery without angina pectoris; Z78.1 Physical restraint status
CPT/HCPCS: 0241U; 36415; 36600; 70450; 71045; 71260; 76770; 80048; 80053; 80069; 81001; 82803; 82947; 83605; 83735; 83880; 84100; 84145; 84484; 85025; 85610; 85730; 87040; 87086; 87184; 93005; 93010; 93306; 96361; 96365; 96375; 97110; 97116; 97162; 97165; 97530; 97535; 99285-25; A9270; J1644; J1650; J1940; J2405; J2543; J7030; J7120; Q9967

== ENCOUNTER → 2021-09-16 | Outpatient (CLI) | payer MEDICARE, OTHER ==
[~2021-09-16] MED LIST changes: +ASPIR 8181 M1 PO; +DOCU100 PO; +ESCI10 PO; +LOW DOSE ASPIRI81 M1 PO; +OLAN5A MM; +PLAVIX75 MG PO; +PRINIVIL10 MG PO; +SOLIFENACIN SUCC5 MG PO; +XARELTO15 MG PO; +Zyprexa Zydis5 MG PO
[2021-09-16 10:40] LABS: Source, Urine Clean Catch
[2021-09-16 11:38] LABS: Bilirubin, Urine Neg (Neg); Blood, Urine Neg (Neg); Glucose Qualitative, Urine Neg (Neg); Ketones, Urine Neg (Neg); Leukocyte Esterase, Urine 2+ (Neg); Nitrite, Urine Pos (Neg); Protein, Urine 1+ (Neg); Urobilinogen, Urine NORM (Normal)
[2021-09-16 11:48] LABS: Appearance, Urine Hazy (Clear); Color, Urine Pale Yellow (P-Yellow)
[2021-09-16 11:50] LABS: Bacteria Few /hpf; Red Blood Cells, Urine 0-2 /hpf (0-2); Squamous Epithelial Cells Rare /hpf (Few)
== END | disposition home or self-care (01) ==
LOC: LAB SHORT 06:45
PROVIDERS: Physician Assistant
DX: N39.0 Urinary tract infection, site not specified (principal)
CPT/HCPCS: 81001; 87077; 87086; 87186

== ENCOUNTER 2022-11-11 16:21 | Emergency (ER) | payer MEDICARE, OTHER ==
[~2022-11-11] VITALS: Ht 177.8 cm; Wt 77.1 kg
== END 2022-11-11 19:33 | disposition home or self-care (01) ==
LOC: ER 16:21
DX: U07.1 COVID-19 (principal); F03.90 Unspecified dementia, unspecified severity, without behavioral disturbance, psychotic disturbance, mood disturbance, and anxiety; I69.954 Hemiplegia and hemiparesis following unspecified cerebrovascular disease affecting left non-dominant side; I10 Essential (primary) hypertension; Z86.718 Personal history of other venous thrombosis and embolism; Z79.01 Long term (current) use of anticoagulants
CPT/HCPCS: 99283

== ENCOUNTER → 2022-11-19 | Outpatient (CLI) | payer MEDICARE, OTHER ==
[2022-11-19 15:46] LABS: BASOPHILS ABSOLUTE AUTO 0.02 K/mm3 (0.00-0.23); BASOPHILS PERCENT AUTO 0 % (0-2); EOSINOPHILS ABSOLUTE AUTO 0.21 K/mm3 (0.00-0.68); EOSINOPHILS PERCENT AUTO 2 % (0-6); Hemoglobin 16.9 g/dL (13.5-17.5); IMMATURE GRAN ABSOLUTE AUTO 0.04 K/mm3 (0.00-0.10); IMMATURE GRAN PERCENT AUTO 0 % (0-1); LYMPHOCYTES ABSOLUTE AUTO 1.59 K/mm3 (0.84-5.20); LYMPHOCYTES PERCENT AUTO 14 % (21-46); MONOCYTES ABSOLUTE AUTO 0.75 K/mm3 (0.16-1.47); MONOCYTES PERCENT AUTO 7 % (4-13); Mean Corpuscular HGB 29.6 pg (26.0-34.0); Mean Corpuscular HGB Conc 34.5 g/dL (31.5-36.5); Mean Corpuscular Volume 86 fL (80-100); Mean Platelet Volume 12.4 fL (9.1-12.4); NEUTROPHILS ABSOLUTE AUTO 8.56 K/mm3 (1.96-9.15); NEUTROPHILS PERCENT AUTO 77 % (41-73); Platelet Count 348 K/mm3 (150-400); RDW Coefficient Variation 13.5 % (11.7-14.2); Red Blood Cell Count 5.71 M/mm3 (4.30-5.90); White Blood Cell Count 11.17 K/mm3 (4.00-11.30)
[2022-11-19 16:07] LABS: Albumin, Blood 3.4 g/dL (3.4-5.0); Albumin/Globulin Ratio 0.9 (0.8-1.8); Bilirubin, Total 0.7 mg/dL (0.1-1.0); Bun/Creatinine Ratio 26.1 (12.0-20.0); Calcium, Blood 9.1 mg/dL (8.5-10.1); Creatinine, Blood 1.11 mg/dL (0.60-1.20); Globulin, Blood 3.9 g/dL (2.2-4.0); Potassium, Blood 3.6 mmol/L (3.5-5.5); Total Protein, Blood 7.3 g/dL (6.4-8.2)
== END | disposition home or self-care (01) ==
LOC: LAB SHORT 13:22
PROVIDERS: Physician Assistant
DX: R73.9 Hyperglycemia, unspecified (principal); F03.90 Unspecified dementia, unspecified severity, without behavioral disturbance, psychotic disturbance, mood disturbance, and anxiety; Z86.711 Personal history of pulmonary embolism
CPT/HCPCS: 80053; 83036; 85025